=== PATIENT | male | born 1960 | race Caucasian/White ===

== ENCOUNTER 2016-11-30 18:13 | Emergency (ER) | payer BC, OTHER ==
[2016-11-30] MEDS ORDERED: NS 0.9% 1000 ML* 1,000 ML IV ONE (19:02)
[2016-11-30 20:14] LABS: Hematocrit 43 % (42-52); Hemoglobin 14.8 g/dl (14.0-18.0); Mean Corpuscular HGB Conc 35 g/dl (31-36); Mean Corpuscular Hemoglobin 32 pg (27-31); Mean Corpuscular Volume 92 fL (80-94); Mean Platelet Volume 8 um3 (7.4-10.4); Red Blood Count 4.61 10^6/ul (4.0-5.4); Red Cell Distribution Width 13 % (10.5-15); White Blood Count 6.9 10^3/ul (3.5-10.8)
[2016-11-30 20:31] LABS: Albumin 4.7 g/dL (3.2-5.2); BUN/Creatinine Ratio 18.7 (8-20); C Reactive Protein 2.77 mg/L (< 5.00); Calcium 9.3 mg/dL (8.6-10.3); EGFR African American 91.6 (>60); EGFR Non-African American 71.2 (>60); Globulin 2.4 g/dL (2-4); Potassium 3.7 mmol/L (3.5-5.0); Total Bilirubin 0.5 mg/dL (0.2-1.0); Total Protein 7.1 g/dL (6.4-8.9)
--- NOTE | 2016-11-30 20:31 | ED ---
Vane Thomason Thomas, scribed for Musa Thmopson MD on 11/30/16 at 1924 . GI/ HPI - HPI Summary HPI Summary: The pt is a 56 y/o M presenting to the ED c/o bloody stools that began this morning at 08:00. He denies straining when taking BMs. He reports that his stools have been loose in addition to the blood. Since the first episode of bloody stool, he has had constant abdominal cramping, nausea, and chills. He denies vomiting and fever. Currently, he describes the feeling of having to defecate but not being able to. He also now complains of a sharp pain in his RLQ. In all, he has had four episodes of bloody stools, although he denies manny blood. He denies eating any unusual foods recently and he ate pork chops last night. The pt rates the pain 6/10. The pain is aggravated and alleviated by nothing. 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 PMHx: GERD, irritable bowel, prostate CA. PSHx: hernia repair (2013). SHx: no smoking, occasional alcohol use, no illicit drug use. He is accompanied by his . - History of Current Complaint Chief Complaint: EDGIBleed Stated Complaint: BLOOD IN STOOL Hx Obtained From: Patient, Family/Financial Project Manager - in room Onset/Duration: Started Hours Ago - today at 08:00, Still Present Timing: Constant Pain Intensity: 6 Location of Pain: Diffuse - cramping in quality, RLQ - sharp pain Pain Characteristics: Cramping - diffuse, constant cramping, Other: - Sharp pain in RLQ Associated Signs and Symptoms: Positive: Vomiting, Blood w/Stool, Chills, Other : - POS: feeling of having to defecate. Negative: Fever Aggravating Factor(s): Nothing Alleviating Factor(s): Nothing - Allergy/Home Medications Allergies/Adverse Reactions: Allergies Allergy/AdvReac Type Severity Reaction Status Date / Time No Known Allergies Allergy Verified 09/08/16 10:29 PMH/Surg Hx/FS Hx/Imm Hx Previously Healthy: No Endocrine/Hematology History: Denies: Hx Diabetes, Hx Systemic Lupus Erythematosus, Hx Thyroid Disease, Hx Anemia Cardiovascular History: Denies: Hx Hypertension, Hx Pacemaker/ICD Respiratory History: Denies: Hx Asthma, Hx Chronic Obstructive Pulmonary Disease (COPD) GI History: Reports: Hx Gastroesophageal Reflux Disease - PRN meds, Hx Irritable Bowel Denies: Hx Jaundice, Hx Ulcer History: Reports: Other Problems/Disorders - elevated PSA and being monitored by Dr. Pereira Denies: Hx Renal Disease Musculoskeletal History: Reports: Hx Back Problems - trina and fusion Denies: Hx Rheumatoid Arthritis Sensory History: Denies: Hx Contacts or Glasses, Hx Hearing Aid Opthamlomology History: Denies: Hx Contacts or Glasses Neurological History: Reports: Other Neuro Impairments/Disorders - PAIN CLINIC Psychiatric History: Denies: Hx Panic Disorder - Cancer History Cancer Type, Location and Year: PROSTATE CA Hx Chemotherapy: No Hx Radiation Therapy: No - Surgical History Surgery Procedure, Year, and Place: Back surgery X 4 with fusion/rods, 1999, 2003, 2004, 2009. RIGHT SHOULDER ROTATOR CUFF REPAIR 2013. BELLY BUTTON HERNIA REPAIR 2013. spinal stimulator - removed Hx Anesthesia Reactions: No Infectious Disease History: Denies: Hx Clostridium Difficile, Hx Hepatitis, Hx Human Immunodeficiency Virus (HIV), Hx of Known/Suspected MRSA, Hx Shingles, Hx Tuberculosis, Hx Known/ Suspected VRE, Hx Known/Suspected VRSA, History Other Infectious Disease, Traveled Outside the [place] in Last 30 Days - Family History Known Family History: Positive: Other - POS: esophageal CA - Social History Alcohol Use: Occasionally Alcohol Amount: couple times a week Substance Use Type: Reports: None Smoking Status (MU): Never Smoked Tobacco Review of Systems Positive: Chills. Negative: Fever Positive: Abdominal Pain - constnat cramping and sharp RLQ pain, Nausea, Other - POS: bloody stools, onset this AM at 08:00. Negative: Vomiting All Other Systems Reviewed And Are Negative: Yes Physical Exam Triage Information Reviewed: Yes Vital Signs On Initial Exam: Initial Vitals Temp Pulse Resp BP Pulse Ox 98.7 F 65 18 134/94 98 11/30/16 18:22 11/30/16 18:22 11/30/16 18:22 11/30/16 18:22 11/30/16 18:22 Vital Signs Reviewed: Yes Appearance: Positive: Well-Appearing, No Pain Distress Skin: Positive: Warm Head/Face: Positive: Normal Head/Face Inspection Eyes: Positive: BRINA ENT: Positive: Hearing grossly normal Neck: Positive: Supple Respiratory/Lung Sounds: Positive: Clear to Auscultation, Breath Sounds Present Cardiovascular: Positive: RRR Abdomen Description: Positive: No Organomegaly, Soft, Other: - mild diffuse abd tyenderness. Negative: Distended, Guarding Bowel Sounds: Positive: Present Musculoskeletal: Positive: Strength/ROM Intact Neurological: Positive: Sensory/Motor Intact, Alert, Oriented to Person Place, Time, Normal Gait Psychiatric: Positive: Affect/Mood Appropriate Diagnostics - Vital Signs Vital Signs Temp Pulse Resp BP Pulse Ox 11/30/16 18:22 98.7 F 65 18 134/94 98 - Laboratory Result Diagrams: 11/30/16 20:04 11/30/16 20:04 Lab Statement: Any lab studies that have been ordered have been reviewed, and results considered in the medical decision making process. Re-Evaluation - Re-Evaluation First Eval Change: Improved - results d/w pt GIGU Course/Dx - Course Assessment/Plan: The pt is a 56 y/o M presenting to the ED c/o bloody stools that began this morning at 08:00. He denies straining when taking BMs. He reports that his stools have been loose in addition to the blood. Since the first episode of bloody stool, he has had constant abdominal cramping, nausea, and chills. He denies vomiting and fever. Currently, he describes the feeling of having to defecate but not being able to. He also now complains of a sharp pain in his RLQ. In all, he has had four episodes of bloody stools, although he denies manny blood. He denies eating any unusual foods recently and he ate pork chops last night. The pt rates the pain 6/10. The pain is aggravated and alleviated by nothing. 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 PMHx: GERD, irritable bowel, prostate CA. PSHx: hernia repair (2013). SHx: no smoking , occasional alcohol use, no illicit drug use. He is accompanied by his . In the ED course the patient was given IV fluids. Blood work shows Glucose 107. Stool occult blood is negative. CT Abd/Pel reveals no bowel obstruction, colitis , free fluid, or free air. Normal appendix. Diverticulosis colon without acute diverticulitis. Unremarkable pancreas, kidneys, and gallbladder. Surgical changes lumbosacral spine. ED physician has reviewed this radiology report and agrees. Patient is diagnosed with diverticulosis. Patient will be discharged home with follow up by PCP. Patient is agreeable to this plan. - Diagnoses Provider Diagnoses: Diverticulosis Discharge - Discharge Plan Condition: Stable Disposition: HOME Patient Education Materials: Diverticulosis (ED) Referrals: Zane Johansen MD [Primary Care Provider] - 3 Days The documentation as recorded by the Vane ferro Thomas accurately reflects the service I personally performed and the decisions made by , Musa Thompson MD.
[2016-11-30] MEDS ORDERED: Iohexol 300* (CONTRAST) 10 ML SDV IV ONE (21:00)
[2016-11-30 22:41] VITALS: BP 108/67
--- NOTE | 2016-12-01 07:48 | RAD ---
CLINICAL HISTORY: Abdominal pain and blood per rectum. Relevant prior surgeries include back surgery x4 with hardware placement. COMPARISON: Similar CT examination dated May 09, 2012 TECHNIQUE: Contrast enhanced CT examination of the abdomen and pelvis from the lung bases through the initial tuberosities. The patient received 124 mL Omnipaque 300 intravenously prior to imaging.The patient received oral contrast as well prior to imaging. FINDINGS: VISUALIZED LUNG BASES: There are mild hypoventilatory changes at the bilateral lung bases. Otherwise the visualized lung bases are grossly clear. There is no pleural effusion. ABDOMEN AND PELVIS: At the anterior left lobe of the liver (image 14 of 101) there is a triangular shaped focus of hyperattenuation similar in appearance to the 2013 CT examination. Otherwise the liver is homogenously hypodense relative to the spleen. The spleen, pancreas and adrenal glands are grossly normal in appearance. The gallbladder is normal. The kidneys are normal in appearance without focal mass, calcification or signs of hydronephrosis. There are contrast has progressed as far as the rectum. The small and large bowel are not distended. The patient's normal appendix is identified in the right lower quadrant measuring up to 6 mm in diameter (coronal image 52). There are air-fluid levels seen throughout the length of the colon. There are scattered rectosigmoid diverticula but there is no definite wall thickening or pericolonic infiltration of the fat.. There is no gross retroperitoneal or mesenteric lymphadenopathy. The pelvic viscera is normal in appearance. The abdominal aorta and iliac arteries are normal in course and diameter. Degenerative changes include multilevel loss of intervertebral disc height involving the lower thoracic and lumbar spine. Postsurgical changes include anterior and posterior transpedicular fixation of L5/S1.There are no sinister bone lesions. IMPRESSION: 1. Air-fluid levels seen in the colon could be associated with diarrheal illness. 2. Likely hepatic steatosis as well as left low meningioma as described above. 3. Additional chronic, degenerative and iatrogenic findings described in the body the report.
== END 2016-11-30 22:42 | disposition home or self-care (01) ==
LOC: ED 18:13
DX: K57.90 Diverticulosis of intestine, part unspecified, without perforation or abscess without bleeding (principal); R10.31 Right lower quadrant pain; R11.0 Nausea
CPT/HCPCS: 36415; 74177; 80053; 82270; 83605; 83690; 85025; 85610; 85730; 86140; 99282; Q9967

== ENCOUNTER 2017-01-26 11:57 | Day surgery (SDC) | payer OTHER ==
[~2017-01-26 11:57] MED LIST: Buffered Lidocaine 0.9% SYRIN* 5 ML/SYR SYRINGE INTRADERM ONE; Famotidine IV* 10 MG/ML 2 ML (20 mg) IV ONE
[2017-01-26] MEDS ORDERED: ceFAZolin 2 GM PREMIX (*) 2 GM/50 ML BAG IVPB ONE (12:31)
[2017-01-26] MEDS ORDERED: Famotidine IV* 10 MG/ML 2 ML (20 mg) ONE (12:31)
[2017-01-26] MEDS ORDERED: Buffered Lidocaine 0.9% SYRIN* 5 ML/SYR SYRINGE ONE (12:31)
[2017-01-26] MEDS ORDERED: fentaNYL* 50 MCG/ML 2 ML VIAL (100 MCG VIAL) ONE (13:01)
[2017-01-26] MEDS ORDERED: Midazolam* 1 MG/ML 5 ML VIAL (5 MG) ONE (13:02)
[2017-01-26] MEDS ORDERED: oxyCODONE TAB* 5 MG TAB PO PRN (13:50)
[2017-01-26] MEDS ORDERED: HYDROmorphone INJ* 1 MG/ML CARPUJECT SYRINGE IV PRN (13:50)
[2017-01-26] MEDS ORDERED: DiMENhydriNATE IV* 50 MG/ML VIAL IV PUSH PRN (13:50)
[2017-01-26] MEDS ORDERED: Acetaminophen TAB* 325 MG PO PRN (13:50)
[2017-01-26] MEDS ORDERED: Bupivacaine 0.25% SDV* 30 ML ONE (13:51)
[2017-01-26] MEDS ORDERED: Lidocaine 1% INJ* 10 MG/ML 30 ML SDV ONE (13:51)
[2017-01-26] MEDS ORDERED: Lidocaine 2% PF * 5 ML VIAL ONE (14:34)
[2017-01-26] MEDS ORDERED: Ondansetron INJ* 2 MG/ML VIAL ONE (14:34)
[2017-01-26] MEDS ORDERED: Propofol* 10 MG/ML 20 ML BTL IV PUSH ONE (14:34)
[2017-01-26] MEDS ORDERED: Acetaminophen TAB* 325 MG ONE (15:18)
[2017-01-26 15:48] VITALS: BP 120/81
--- NOTE | 2017-01-26 16:48 | RAD ---
INDICATION: Dorsal column stimulator placement COMPARISON: None FINDINGS: 129.4 seconds of fluoroscopy were provided for the anesthesiology department. Fluoroscopic spot imaging of the thoracic spine were obtained for operative control and show placement of a dorsal column stimulator with caudal most portion at T7/T8. CPT II Codes: 6045F (fluoro time doc)
--- NOTE | 2017-01-27 04:43 | OP ---
OPERATIVE NOTE: DATE OF OPERATION: 01/26/17 - [facility] DATE OF : 58 SURGEON: Jyotsna Gimenez MD SPINNER FRAME: Not applicable. ANESTHESIOLOGIST: Dr. Hilary Barlow. ANESTHESIA: Local MAC. PRE-OP DIAGNOSIS: Failed laminectomy syndrome. POST-OP DIAGNOSIS: Failed laminectomy syndrome. OPERATIVE PROCEDURE: Spinal cord stimulation, percutaneous trial and . INDICATIONS: I had the pleasure of seeing Mr. John Smyth at the operating room today. Mr. mSyth presents today for spinal cord stimulation, percutaneous trial and . ESTIMATED BLOOD LOSS: Minimal. HARDWARE: Nevro dual-lead percutaneous stimulator leads. ALLERGIES: Adhesive tape. DESCRIPTION OF PROCEDURE: The patient's back was dressed with paper tape and 4x4's only. The anchors were stitched in with 2-0 silk sutures and then tied and secured. The left lead was advanced to reach the top of T8 and the right lead the top of T9. The patient tolerated the procedure well and was subsequently discharged with no further complications. He was given Percocet 5/ 325, MDD 5, dispenses 30, to use at home for post-procedural pain. SPINAL CORD STIMULATOR TRIAL: PROCEDURE PERFORMED: Dual lead spinal cord stimulator trial. PROCEDURE PERFORMED BY: Jyotsna Gimenez MD FLUORO TIME: seconds. SEDATION: mg Versed. PHYSICAL EXAMINATION: The patient denies any new neurological or constitutional red flags. The patient denies any recent infection or current use of anticoagulants. Medications, as outlined on electronic medical record as well as allergies were reviewed with the patient. Skin of back with rash, lesions, or ulcers. PROCEDURE SUMMARY: The patient was seen and examined. Medical records were reviewed. The patient was informed of the risks, benefits, and alternatives to the procedure. Risks discussed included but were not limited to bleeding, infection, nerve damage or spinal headaches. The patient indicates understanding , all questions were answered, and consent obtained. The patient was then brought to the procedure room and placed in the prone position with arms to the side, making sure no pressure points were left unattended. Pressure points were checked and padded. Proceduralist was in continuous attendance. The area was then prepped and draped in the usual sterile manner, strict sterile technique was used. Final verification ("time out ") was performed to ensure the correct patient identity, site and agreement on the procedure to be done. The T12-L1 space was identified and confirmed with fluoroscopy. A left paramedian approach was used. mL of plain lidocaine 1% were used for local anesthesia of the skin. A 14-Gauge 3.5 inch Epidural Tuohy needle was inserted through the skin at the level one vertebral body below the aforementioned targeted interspace. The needle was advanced under fluoroscopy in a low transverse approach. The epidural space was identified and confirmed by fluoroscopy and easy thread of the SCS lead was performed. There was minimal change of resistance felt with the BRITTANI syringe when trying to identify the epidural space, so the lead was used to confirm entry into the epidural space. The SCS single lead was easily threaded all the way up to superior endplate of the vertebral body and tested by our in store representative. The steering and maneuvering of the lead was relatively easy and uneventful without significant issue and care was taken to keep the lead just left of midline with the tip aiming slightly to the left. The initial placement of the lead provided stimulation coverage that was adequate for the patient's pain. We then directed our attention to the right sided lead using the same method as summarized above. At this point, the Tuohy needles were cautiously removed verifying under fluoroscopy there was no migration of the lead. The leads were secured with Steri-Strips and Tegaderm in a sterile fashion. The device was taped and secured to the patient's . The patient tolerated the procedure well and was taken to our post-procedure care unit for further recovery and assessment of stimulation coverage modifications were made by the in store representative. The patient will return for follow up and lead pull in one week. Orders for thoracic spine 2- view x-rays have been ordered for today. All fluoroscopic images were saved. [id number]/[facility] #: [id number] VIC
== END 2017-01-26 16:05 | disposition home or self-care (01) ==
LOC: OR 11:57
PROVIDERS: ATTEND Anesthesiology Pain Medicine
DX: M96.1 Postlaminectomy syndrome, not elsewhere classified (principal); M54.16 Radiculopathy, lumbar region; K21.9 Gastro-esophageal reflux disease without esophagitis; K58.9 Irritable bowel syndrome, unspecified
CPT/HCPCS: 77003; A9270-GY; C1897; J0690; J2001; J2250; J2405; J2704; J3010

== ENCOUNTER 2017-02-03 13:32 | Emergency (ER) | payer BC, OTHER ==
[2017-02-03 13:41] VITALS: BP 115/74
--- NOTE | 2017-02-03 14:03 | UC ---
Pediatric ENT HPI - HPI Summary HPI Summary: C/O ear fullness with vertigo with any head movement. Sinus headaches as well. - History Of Current Complaint Chief Complaint: UCDizziness Stated Complaint: VERTIGO Time Seen by Provider: 02/03/17 13:48 Hx Obtained From: Patient Onset/Duration: Gradual Onset, Lasting Weeks - with the ear fullness, Worse Since - in the last week with progressively worsening vertigo. Timing: Intermittent, Lasting:, Seconds - 30 Severity Initially: Mild Severity Currently: Moderate Character: Dull - pressure sinus headache pain Aggravating Factor(s): Movement Alleviating Factor(s): Nothing Associated Signs And Symptoms: Ear, Decreased Hearing - Risk Factor(s) Epiglottis Risk Factors: Negative - Allergies/Home Medications Allergies/Adverse Reactions: Allergies Allergy/AdvReac Type Severity Reaction Status Date / Time steri strips Allergy Blisters Uncoded 02/03/17 13:41 Past Medical History Respiratory History: No: Asthma GI/ History: Yes: GERD - PRN meds Chronic Illness History: No: Diabetes - Family History Family History of Asthma: No Family History Of Seizure: No - Social History Lives With: Review Of Systems ENT: Ear Pain Neurological: Other - vertigo All Other Systems Reviewed And Are Negative: Yes Physical Exam Triage Information Reviewed: Yes Vital Signs: Initial Vital Signs Temp 96.7 F 02/03/17 13:36 Pulse 65 02/03/17 13:36 Resp 14 02/03/17 13:36 BP 115/74 02/03/17 13:36 Pulse Ox 97 02/03/17 13:36 Vital Signs Reviewed: Yes Appearance: Well-Appearing, No Pain Distress, Well-Nourished ENT: Positive: Nasal congestion - with allergic changes, TMs normal - normal on the right left with post surgical changes Neck: Positive: Supple Respiratory: Positive: Lungs clear Cardiovascular: Positive: Normal Musculoskeletal: Positive: Normal Neurological: Positive: Normal Psychological: Positive: Normal Pediatric EENT Course/Dx - Differential Dx/Diagnosis Differential Diagnosis/HQI/PQRI: Allergic Reaction, Otitis Media, URI Provider Diagnoses: Vertigo. Allergic rhinitis Discharge - Discharge Plan Condition: Stable Disposition: HOME Prescriptions: Meclizine HCl [Dramamine Less Drowsy-] 25 mg PO Q6H PRN #30 tab PRN Reason: Vertigo predniSONE TAB* [Deltasone TAB*] 20 mg PO DAILY #18 tab Patient Education Materials: Vertigo (ED), Meclizine (By mouth), Allergic Rhinitis (ED), Prednisone (By mouth) Additional Instructions: NEILMED SINUS RINSE: CHECK OUT AT [employer] Saline nasal wash helps with mucous, allergies and congestion. It can be used up to twice a day or only as needed. Use lukewarm tap water. It does not have to be sterilized or distilled water. Do 1/3 on each side and snort out of both nostrils. Repeat the process with 1/6 of the bottle on each side with snorting in between to finish the solution in the bottle
== END 2017-02-03 14:19 | disposition home or self-care (01) ==
LOC: UCCORT 13:32
DX: R42 Dizziness and giddiness (principal); J30.9 Allergic rhinitis, unspecified; K21.9 Gastro-esophageal reflux disease without esophagitis; Z91.048 Other nonmedicinal substance allergy status
CPT/HCPCS: 99212; G0463

== ENCOUNTER 2017-11-29 17:37 | Emergency (ER) | payer BC, OTHER ==
[2017-11-29] MEDS ORDERED: Ketorolac INJ* 60 MG/2 ML VIAL IM ONE (18:01)
[2017-11-29 18:02] VITALS: BP 145/93
--- OUTSIDE RECORDS SUMMARY | 2017-11-29 18:06 | XMS REPORT ---
:1960 External Reference #:[id number] Author Organization [facility] Address [address] [address] Phone [phone] Care Team Providers Name Role Phone Zane Johansen MD Care Team Information Surveillance Inspector Unavailable Payers Type Date Identification Numbers Payment Provider Subscriber Commercial Policy Number: [id number] [facility] Ppo John Smyth PayID: [id number] [address] [address] [place] [address] Workers Compensation Onset: 1996 Policy Number: Ophelia Smyth [id number] Group Number: [id number] [address] PayID: [place] [address] Problems Date Description Provider Status Onset: 07/11/2015 Pure hypercholesterolemia Zane Johansen MD Active Onset: 07/14/2015 Gastroesophageal reflux disease Zane Johansen MD Active Onset: 07/14/2015 Ace's esophagus Zane Johansen MD Active Onset: 07/14/2015 Lumbar spondylosis Zane Johansen MD Active Onset: 08/09/2015 Irritable bowel syndrome with Zane Johansen MD Active diarrhea Onset: 04/30/2017 Obstructive sleep apnea of adult Zane Johansen MD Active Social History Type Date Description Comments Marital Status Lives With Female Partner Namita Jalyn 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 - [employer] Use Occasionally consumes alcohol Smoking Patient has never smoked Daily Caffeine Consumes on average 3 cups of coffee per day Allergies, Adverse Reactions, Alerts Date Description Reaction Status Severity Comments 06/29/2015 NKDA active Medications Medication Date Status Form Strength Qnty SIG Indications Ordering Provider Azithromycin Hx Tablets 250mg 6tabs 2 pills R05 Haily 018 - by mouth Zane, day 1, 018 then 1 pill once daily for 4 more days (take w/ food) Benzonatate Hx Capsules 200mg 30caps 1 pill by R05 Haily 018 - mouth 3 , Zane, times a 018 day as needed for cough (swallow whole) Omeprazole Active Capsules DR 20mg 90caps 1 By K22.70 Haily 017 Mouth , Zane, Every Day K21.9 Escitalopram Active Tablets 10mg 90tabs Take 1 K58.0 Digiovanna, Oxalate Tablet Daily MD Zane Famciclovir 03/07/2017 Hx Tablets 500mg 21tabs 1 tablet by B02.9 Palomares, - mouth three DO Darwin 04/16/2017 times daily for 7 days Amitriptyline 03/07/2017 Hx Tablets 10mg 90tabs 1 by mouth B02.9 Palomares, HCL - at bedtime DO Darwin 04/16/2017 Fluticasone 06/30/2016 Hx Suspension 50mcg 16gm 1 spray per J06.9 Digiovanna, Propionate - /Act nostril MD Zane 11/29/2016 twice a day Return To 06/30/2016 Hx Cleared to Haily, Work Note - return to MD Zane 07/03/2016 work as of Sunday07/03/16 at full duty w/o restriction Dicyclomine 08/09/2015 Hx Capsules 10mg 60caps take one K58.0 Digiovanna, HCL - capsule by MD Zane 06/30/2016 mouth as needed up to 3 tines a day for cramps or loose stools Escitalopram 08/09/2015 Hx Tablets 10mg 90tabs Take 1 K58.0 Digiovanna, Oxalate - Tablet Daily MD Zane 11/29/2016 Nexium 06/29/[address] 40mg 180caps 2 by mouth K21.9 Digiovanna, - every day MD Zane 11/29/2016 K22.70 Prilosec OTC - Hx Tablets DR 20mg 1 by mouth every K21.9 Unknown 12/13/2016 day Immunizations CPT Code Status Date Vaccine Reaction Lot # [id number] Given 01/15/2017 Afluria Imunization [facility] Q2035 Given 01/25/2016 Afluria Imunization 60121 Given 06/29/2015 Tetanus And Diptheria Toxoids For Adult [id number] Use-preservative free 34966 Given 01/18/2004 Pneumococcal 23 Immunization Adult Or Immunosuppressed Patient Vital Signs Date Vital Result Comment 11/26/2017 Body Temperature 98.0 F Weight 207.00 lb Heart Rate 74 /min BP Systolic 120 mmHg BP Diastolic 80 mmHg Respiratory Rate 18 /min Height 67 inches 5'7" O2 % BldC Oximetry 94 % Ra O2 Saturation Level with Exercise 95 % walking BMI (Body Mass Index) 32.4 kg/m2 07/24/2017 Weight 211.00 lb Heart Rate 74 /min BP Systolic 130 mmHg BP Diastolic 76 mmHg Respiratory Rate 18 /min Height 67 inches 5'7" BMI (Body Mass Index) 33.0 kg/m2 04/16/2017 Weight 204.00 lb Heart Rate 72 /min BP Systolic 122 mmHg BP Diastolic 68 mmHg Respiratory Rate 18 /min Height 67 inches 5'7" BMI (Body Mass Index) 31.9 kg/m2 03/07/2017 Body Temperature 97.9 F Weight 204.00 lb Heart Rate 72 /min BP Systolic 132 mmHg BP Diastolic 70 mmHg Respiratory Rate 18 /min Height 67 inches 5'7" BMI (Body Mass Index) 31.9 kg/m2 01/22/2017 Weight 204.00 lb Heart Rate 64 /min BP Systolic 124 mmHg BP Diastolic 76 mmHg Respiratory Rate 18 /min Height 67 inches 5'7" BMI (Body Mass Index) 31.9 kg/m2 11/30/2016 Body Temperature 97.9 F Weight 204.00 lb Heart Rate 78 /min BP Systolic 132 mmHg BP Diastolic 80 mmHg Respiratory Rate 17 /min Height 67 inches 5'7" BMI (Body Mass Index) 31.9 kg/m2 09/06/2016 Weight 202.00 lb Heart Rate 74 /min BP Systolic 120 mmHg BP Diastolic 80 mmHg Respiratory Rate 18 /min Height 67 inches 5'7" BMI (Body Mass Index) 31.6 kg/m2 06/30/2016 Weight 202.00 lb Heart Rate 72 /min BP Systolic 120 mmHg BP Diastolic 80 mmHg Respiratory Rate 18 /min Height 67 inches 5'7" BMI (Body Mass Index) 31.6 kg/m2 08/09/2015 Body Temperature 97.8 F Weight 206.00 lb Heart Rate 74 /min BP Systolic 122 mmHg BP Diastolic 82 mmHg Respiratory Rate 18 /min Height 66.75 inches 5'6.75" BMI (Body Mass Index) 32.5 kg/m2 06/29/2015 Weight 202.00 lb Heart Rate 74 /min Respiratory Rate 18 /min Height 66.75 inches 5'6.75" BMI (Body Mass Index) 31.9 kg/m2 Results Test Date Test Result H/L Range Note Lipid Treatment 07/17/2017 Cholesterol 238 mg/dL High 50-199 1 Triglycerides 186 mg/dL 30-200 1 HDL 44 mg/dL 29-71 1, 2 Chol/ HDL Ratio 5.4 ratio 4.0-6.7 1 VLDL 37 mg/dL High 2-29 1 LDL (Calc) 157 mg/dL High 20-99 1, 3 Alt 29 U/L 3-42 1 Ast 21 U/L 8-42 1 Basic (BMP) 04/16/2017 Sodium 140 mmol/L 135-146 4, 5 Potassium 4.2 mmol/L 3.5-5.2 4 Chloride# 101 mmol/L 97-110 4, 6 Carbon Dioxide 30 mmol/L 24-34 4 Glucose 107 mg/dL High 70-105 4 Creatinine 1.2 mg/dL 0.5-1.4 4 Calcium 9.4 mg/dL 8.5-10.2 4 Non Amber Egfr >60 >60 4, 7 Amber Egfr >60 >60 4, 8 Anion Gap 9 mmol/L 7-16 4, 9 BUN 27 mg/dL High 6-26 4 CBC With Auto Diff 04/16/2017 WBC 9.2 K/uL 4.1-11.0 4 RBC 4.64 M/uL 4.60-6.10 4 Hemoglobin 14.6 gm/dL 13.5-18.0 4 Hematocrit 43.1 % 41.0-53.0 4 MCV 92.8 fL 80.0-97.0 4 MCH 31.4 pg 27.0-32.0 4 MCHC 33.8 g/dL 32.0-36.0 4 RDW 12.6 % 11.5-14.5 4 PLT Count 288 K/ul 140-400 4 MPV 9.4 FL 7.1-10.7 4 Neutrophil 77.8 % High 35.0-75.0 4 Lymphocyte 14.7 % Low 16.0-52.0 4 Monocyte 5.5 % 2.0-10.0 4 Eosinophil 1.0 % 0.0-5.0 4 Basophil 1.0 % 0.0-4.0 4 Abs Neutrophils 7.2 K/uL 2.1-8.0 4 Abs Lymphocytes 1.4 K/uL 0.8-5.5 4 Abs Monocytes 0.5 K/uL 0.1-1.0 4 Abs Eosinophils 0.1 K/uL 0.0-0.5 4 Abs Basophils 0.1 K/uL 0.0-0.3 4 Lipid Treatment 01/01/2017 Cholesterol 240 mg/dL High 50-199 10 Triglycerides 215 mg/dL High 30-200 10 HDL 49 mg/dL 29-71 10, 11 Chol/ HDL Ratio 4.9 ratio 4.0-6.7 10 VLDL 43 mg/dL High 2-29 10 LDL (Calc) 149 mg/dL High 20-99 10, 12 Alt 29 U/L 3-42 10 Ast 21 U/L 8-42 10 Basic (BMP) 01/01/2017 Sodium 140 mmol/L 135-146 10, 13 Potassium 4.3 mmol/L 3.5-5.2 10 Chloride# 105 mmol/L 97-110 10, 14 Carbon Dioxide 28 mmol/L 24-34 10 Glucose 109 mg/dL High 70-105 10 BUN 25 mg/dL 6-26 10 Creatinine 1.2 mg/dL 0.5-1.4 10 Calcium 9.1 mg/dL 8.5-10.2 10 Non Amber Egfr 61 >60 10, 15 Amber Egfr >60 >60 10, 16 Anion Gap 7 mmol/L 7-16 10, 17 Laboratory test finding 01/01/2017 Magnesium 2.1 mg/dL 1.5-2.7 10 Vitamin B12 319 pg/mL 180-914 10 CBC With Auto Diff 09/08/2016 WBC 5.4 K/uL 4.1-11.0 RBC 4.59 M/uL Low 4.60-6.10 Hemoglobin 14.5 gm/dL 13.5-18.0 Hematocrit 42.8 % 41.0-53.0 MCV 93.3 fL 80.0-97.0 MCH 31.5 pg 27.0-32.0 MCHC 33.8 g/dL 32.0-36.0 RDW 13.3 % 11.5-14.5 PLT Count 215 K/ul 140-400 Neutrophil 54.0 % 35.0-75.0 Lymphocyte 30.8 % 16.0-52.0 Monocyte 8.1 % 2.0-10.0 Eosinophil 5.0 % 0.0-5.0 Basophil 2.1 % 0.0-4.0 Abs Neutrophils 2.9 K/uL 2.1-8.0 Abs Lymphocytes 1.7 K/uL 0.8-5.5 Abs Monocytes 0.4 K/uL 0.1-1.0 Abs Eosinophils 0.3 K/uL 0.0-0.5 Abs Basophils 0.1 K/uL 0.0-0.3 Laboratory test finding 09/08/2016 Vitamin B12 362 pg/mL 180-914 Total Testosterone Adult Male 315 ng/dL 285-950 TSH Receptor AB -RL 09/08/2016 TSH Receptor AB <0.90 IU/L 18 Basic (BMP) 07/02/2015 Sodium 138 mmol/L 134-142 Potassium 4.2 mmol/L 3.5-5.2 Chloride 104 mmol/L 97-109 Carbon Dioxide 29 mmol/L 24-34 Glucose 96 mg/dL 70-105 BUN 20 mg/dL 6-26 Creatinine 1.1 mg/dL 0.5-1.4 Calcium 9.0 mg/dL 8.5-10.2 Anion Gap 9 mmol/L 6-14 Non Amber Egfr >60 >60 19 Amber Egfr >60 >60 20 Lipid Treatment 07/02/2015 Cholesterol 204 mg/dL High 50-199 Triglycerides 96 mg/dL 30-200 HDL 42 mg/dL 29-71 21 Chol/ HDL Ratio 4.9 ratio 4.0-6.7 VLDL 19 mg/dL 2-29 LDL (Calc) 143 mg/dL High 20-99 22 Alt 28 U/L 3-42 Ast 14 U/L 8-42 Laboratory test finding 07/02/2015 Magnesium 2.1 mg/dL 1.5-2.7 Vitamin B12 513 pg/mL 180-914 CBC With Auto Diff 07/02/2015 WBC 5.9 K/uL 4.1-11.0 RBC 4.61 M/uL 4.60-6.10 Hemoglobin 14.3 gm/dL 13.5-18.0 Hematocrit 42.9 % 41.0-53.0 MCV 93.0 fL 80.0-97.0 MCH 31.0 pg 27.0-32.0 MCHC 33.3 g/dL 32.0-36.0 RDW 12.5 % 11.5-14.5 PLT Count 242 K/ul 140-400 Neutrophil 56.3 % 35.0-75.0 Lymphocyte 32.3 % 16.0-52.0 Monocyte 7.4 % 2.0-10.0 Eosinophil 2.7 % 0.0-5.0 Basophil 1.3 % 0.0-4.0 Abs Neutrophils 3.3 K/uL 2.1-8.0 Abs Lymphocytes 1.9 K/uL 0.8-5.5 Abmon 0.4 K/uL 0.1-1.0 Abs Eosinophils 0.2 K/uL 0.0-0.5 Abs Basophils 0.1 K/uL 0.0-0.3 Laboratory test finding 07/02/2015 TSH 0.71 uIU/mL 0.35-4.94 Hepatitis C Virus Antibody NONREACTIVE Nonreactive 1 07/25 preOV 2 Per NCEP ATP III Guidelines: Results lower than 40 mg/dL are suggestive of increased risk for coronary artery disease. Results > or=to 60 mg/dL are considered a negative risk factor. 3 Per NCEP ATP III Guidelines: Normal Population <130 Patients with medical conditions: CHD/DM Optimal: <100 Borderline high: 130-159 High: 160-189 Very high: >189 4 cc: Dr Sullivan (FAXED 04/17 - AD) 5 Updated reference range on new analyzer 6 Updated reference range on new analyzer 7 Concerning GFR Guidelines: Normal function or mild renal disease, if clinically at risk: >/=60 mL/min Moderately decreased: 30-59 Severely decreased: 15-29 Renal failure: <15 Glomerular Filtration Rate (GFR) is estimated based on the MDRD equation, which assumes a steady state for creatinine as recommended by the National Kidney Disease Education Program in conjunction with the National Institutes of Health and the National Kidney Foundation. Clinical conditions in which it may be necessary to measure GFR by using clearance methods include extremes of age and body size, severe malnutrition or obesity, diseases of skeletal muscle, paraplegia or quadriplegia, vegetarian diet, rapidly changing kidney function, and calculation of the dose of potentially toxic drugs that are excreted by the kidneys. 8 Concerning GFR Guidelines for Americans: Normal function or mild renal disease, if clinically at risk: >/=60 mL/min Moderately decreased: 30-59 Severely decreased: 15-29 Renal failure: <15 9 Updated reference range on new analyzer 10 12/24 preOV 11 Per NCEP ATP III Guidelines: Results lower than 40 mg/dL are suggestive of increased risk for coronary artery disease. Results > or=to 60 mg/dL are considered a negative risk factor. 12 Per NCEP ATP III Guidelines: Normal Population <130 Patients with medical conditions: CHD/DM Optimal: <100 Borderline high: 130-159 High: 160-189 Very high: >189 13 Updated reference range on new analyzer 14 Updated reference range on new analyzer 15 Concerning GFR Guidelines: Normal function or mild renal disease, if clinically at risk: >/=60 mL/min Moderately decreased: 30-59 Severely decreased: 15-29 Renal failure: <15 Glomerular Filtration Rate (GFR) is estimated based on the MDRD equation, which assumes a steady state for creatinine as recommended by the National Kidney Disease Education Program in conjunction with the National Institutes of Health and the National Kidney Foundation. Clinical conditions in which it may be necessary to measure GFR by using clearance methods include extremes of age and body size, severe malnutrition or obesity, diseases of skeletal muscle, paraplegia or quadriplegia, vegetarian diet, rapidly changing kidney function, and calculation of the dose of potentially toxic drugs that are excreted by the kidneys. 16 Concerning GFR Guidelines for Americans: Normal function or mild renal disease, if clinically at risk: >/=60 mL/min Moderately decreased: 30-59 Severely decreased: 15-29 Renal failure: <15 17 Updated reference range on new analyzer 18 Reference range: <=1.75 INTERPRETIVE INFORMATION: Thyroid Stimulating Hormone Receptor Ab Autoimmune thyroid disease may be confirmed when TRAb testing is positive. Performed by [facility], [address] [place] [id number] [email or web address], Migel Carlson MD, Lab. Director Unless otherwise specified, testing performed by [facility] [place] [facility] [address] [address] 19 Concerning GFR Guidelines: Normal function or mild renal disease, if clinically at risk: >/=60 mL/min Moderately decreased: 30-59 Severely decreased: 15-29 Renal failure: <15 Glomerular Filtration Rate (GFR) is estimated based on the MDRD equation, which assumes a steady state for creatinine as recommended by the National Kidney Disease Education Program in conjunction with the National Institutes of Health and the National Kidney Foundation. Clinical conditions in which it may be necessary to measure GFR by using clearance methods include extremes of age and body size, severe malnutrition or obesity, diseases of skeletal muscle, paraplegia or quadriplegia, vegetarian diet, rapidly changing kidney function, and calculation of the dose of potentially toxic drugs that are excreted by the kidneys. 20 Concerning GFR Guidelines for Americans: Normal function or mild renal disease, if clinically at risk: >/=60 mL/min Moderately decreased: 30-59 Severely decreased: 15-29 Renal failure: <15 21 Per NCEP ATP III Guidelines: Results lower than 40 mg/dL are suggestive of increased risk for coronary artery disease. Results > or=to 60 mg/dL are considered a negative risk factor. 22 Per NCEP ATP III Guidelines: Normal Population <130 Patients with medical conditions: CHD/DM Optimal: <100 Borderline high: 130-159 High: 160-189 Very high: >189 Procedures Date CPT Code Description Status 11/26/2017 09932 Measure Blood Oxygen Level Single Determination Completed 04/16/2017 79285 Electrocardiogram Complete Completed 10/14/2013 Colonoscopy Completed Encounters Type Date Location Provider CPT E/M Dx Office Visit 07/24/2017 2:30p [facility] [place] [address] E78.00 K21.9 K58.0 K22.70 M47.816 Z79.899 Z68.33 Office Visit 04/16/2017 2:30p [facility] [place] [address] Z01.810 M54.5 Office Visit 03/07/2017 2:00p [facility] [place] [address] B02.9 Office Visit 01/22/2017 2:30p [facility] [place] [address] E78.00 K21.9 K58.0 K22.70 Office Visit 11/30/2016 4:15p [facility] [place] [address] R19.7 Office Visit 09/06/2016 4:30p [facility] [place] [address] G47.00 R53.83 Office Visit 06/30/2016 1:30p [facility] [place] [address] R07.9 K21.9 E78.00 K58.0 M47.814 J06.9 R97.20 Z79.899 Office Visit 08/09/2015 2:00p [facility] [place] [address] K58.0 K21.9 Office Visit 06/29/2015 1:30p [facility] [place] [address] Z00.00 M25.511 K21.9 K22.70 Z79.899 E78.0 R53.83 Z11.59 Z23 Plan of Care Future Appointment(s):01/16/2018 8:20 am - Schedule, Laboratory at [facility]2017 2:30 pm - Zane Johansen [facility] at [facility]11/26/2017 - Zane Johansen, MDR05 CoughNew Medication:Azithromycin 250 mgBenzonatate 200 mgFollow up: .Z68.32 Body mass index (BMI) 32.0-32.9, adult
--- NOTE | 2017-11-29 18:09 | UC ---
Respiratory Complaint HPI - HPI Summary HPI Summary: \Onset of visual blurring x 3.5 hours, no diplopia, after awakening with a headache and neck pain this morning. No photo- or phonophobia, no fever, no vertigo or sided weakness, no dysarthria. Has felt alert, without nausea or vomiting. Has been treated for the past 5 days with azithromycin for treatment of suspected walking pneumonia; has not had a chest xray. Continues to cough with severe disruption of sleep. Has a dorsal column stimulator in place for the past several months. Has been taking codeine cough suppressant, last dose last pm. Took advil this morning without relief of pain. Mowed for about an hour this afternoon; visual blurring began after that. No hx of hypertension; reports that his usual blood pressure is in the 108- 120 range. - History of Current Complaint Chief Complaint: UCGeneralIllness Stated Complaint: HEADACHE, BLURRED VISION Time Seen by Provider: 11/29/17 18:00 Hx Obtained From: Patient, Family/Supply Chain Manager - here with his Onset/Duration: Sudden Onset, Lasting Hours Timing: Constant Severity Initially: Moderate Severity Currently: Severe Pain Intensity: 9 Character: Cough: Nonproductive Aggravating Factors: Recumbent Position Alleviating Factors: Nothing Associated Signs And Symptoms: Positive: Dizziness. Negative: Dyspnea, Fever, Chills - Risk Factors Pulmonary Embolism Risk Factors: Negative Cardiac Risk Factors: Family History - Allergies/Home Medications Allergies/Adverse Reactions: Allergies Allergy/AdvReac Type Severity Reaction Status Date / Time steri strips Allergy Blisters Uncoded 11/29/17 17:47 Home Medications: Home Medications Azithromycin TAB* [Zithromax TAB (Z-TAMIKA) 250 mg #6 tabs] 1 tab DAILY 11/29/17 [ History Confirmed 11/29/17] Benzonatate CAP* [Tessalon 100 MG CAP*] 1 cap TID PRN 11/29/17 [History Confirmed 11/29/17] Codeine Phosphate/Guaifenesin [Codeine-Guaifen 10-100 mg/5 ml] 1 tab DAILY 11/29 [History Confirmed 11/29/17] PMH/Surg Hx/FS Hx/Imm Hx Previously Healthy: No - multiple back surgeries, overweight. GI/ History: Gastroesophageal Reflux - Surgical History Surgical History: Yes Surgery Procedure, Year, and Place: Back surgery X 4 with fusion/rods, 1999, 2003, 2004, 2009. RIGHT SHOULDER ROTATOR CUFF REPAIR 2013. BELLY BUTTON HERNIA REPAIR 2013. spinal stimulator 2017, then removed two days later ( AT [facility]). left ear x2 - RECON. OF EAR DRUM - NO IMPLANTS. valarie elbows, 1999. dorsal column stimulator, [employer], Apr 2017 - Family History Known Family History: Positive: Cardiac Disease - father had [place] in his 60's, Other - POS: esophageal CA - Social History Occupation: Employed Full-time Lives: With Family Alcohol Use: Occasionally Alcohol Amount: 3-4 per week Substance Use Type: None Smoking Status (MU): Never Smoked Tobacco Have You Smoked in the Last Year: No - Immunization History Most Recent Tetanus Shot: unknown Review of Systems Constitutional: Fatigue Skin: Negative Eyes: Blurred Vision ENT: Negative Respiratory: Cough Cardiovascular: Negative Gastrointestinal: Negative Genitourinary: Negative Motor: Negative Neurovascular: Negative Musculoskeletal: Arthralgia Neurological: Headache Psychological: Negative Is Patient Immunocompromised?: No All Other Systems Reviewed And Are Negative: Yes Physical Exam Triage Information Reviewed: Yes Appearance: Ill-Appearing - looks mildly unwell, Pain Distress - moderate, Obese Vital Signs: Initial Vital Signs Temp 97.9 F 11/29/17 17:43 Pulse 73 11/29/17 17:43 Resp 24 11/29/17 17:43 BP 145/93 11/29/17 17:43 Pulse Ox 97 11/29/17 17:43 Eyes: Positive: Conjunctiva Clear ENT: Positive: Pharynx normal, TM dull - on left, TM scarred with air fluid level Neck: Positive: Supple - has pain with extension, but neck is not rigid., Nontender, No Lymphadenopathy Respiratory: Positive: Lungs clear Cardiovascular: Positive: RRR, No Murmur Abdomen Description: Positive: Nontender, No Organomegaly, Soft Bowel Sounds: Positive: Present Musculoskeletal: Positive: Strength Intact Neurological: Positive: Alert Psychological Exam: Normal Skin Exam: Normal UC Diagnostic Evaluation - Laboratory O2 Sat by Pulse Oximetry: 97 Diagnostic Studies Comment: Chest xray per without evidence of pneumonia. Radiology read pending. CT brain negative per [facility]. - Radiology Xray Interpretation: No Acute Changes Radiology Interpretation Completed By: ED Physician - CT CT Interpretation: No Acute Changes Re-Evaluation - Re-Evaluation First Eval Re-Evaluation Time: 18:55 Change: Improved Comment: headache decreased from 9/10 to 4/10, has an appetite, visual blurring is resolved Respiratory Course/Dx - Course Course Of Treatment: Complete course of azithromycin. Labs for evaluation of continued symptoms of headache, cough and malaise. - Differential Dx/Diagnosis Differential Diagnosis/HQI/PQRI: Sinusitis, Other - viral illness, pneumonia, Lyme disease Provider Diagnoses: cough, likely viral illness. Headache NYD Discharge - Sign-Out/Discharge Documenting (check all that apply): Patient Departure All imaging exams completed and their final reports reviewed: No - Discharge Plan Condition: Stable Disposition: HOME Patient Education Materials: Viral Syndrome (ED) Referrals: Zane Johansen MD [Primary Care Provider] - Additional Instructions: As discussed, lab work has been ordered to help to establish a diagnosis for your persistent fever and cough. Lab results can be sent to your primary care physician. A number of results will be available tomorrow afternoon, but not all. We call abnormals, but you could call to check on the report. You were given ketorolac, an injectable anti-inflammatory, which gave relief of headache. If your headache intensifies or you continue to feel unwell, you will go to the emergency room. Follow up with your family physician to review lab work. Lyme serology will take up to 5 days to be reported. - Billing Disposition and Condition Condition: STABLE Disposition: Home
--- NOTE | 2017-11-29 18:43 | RAD ---
EXAM: CT Head Without Intravenous Contrast CLINICAL HISTORY: 57 years old, male; Signs and symptoms; Dizziness and visual disturbance; Patient HX: Blurred vision, ARZOLA, dizziness, SOB since mowing the lawn at 1430 hrs, HX of prostate ca; Additional info: Headache with visual blurring x 1 day TECHNIQUE: Axial computed tomography images of the head/brain without intravenous contrast. All CT scans at this facility use at least one of these dose optimization techniques: automated exposure control; mA and/or kV adjustment per patient size (includes targeted exams where dose is matched to clinical indication); or iterative reconstruction. COMPARISON: BRAIN [facility] MRI BRAIN W/WO 03/12/2017 2:16 PM FINDINGS: Brain: No intracranial hemorrhage or extra-axial fluid collection. No evidence of mass effect or midline shift. Berman-white matter differentiation is normal. Ventricles: Unremarkable. No ventriculomegaly. Bones/joints: Unremarkable. No acute fracture. Soft tissues: Unremarkable. Sinuses: Unremarkable as visualized. No acute sinusitis. Mastoid air cells: Non-pneumatization of left mastoid air cells. Right mastoid air cells are clear. IMPRESSION: No acute intracranial pathology.
--- NOTE | 2017-11-30 07:37 | RAD ---
INDICATION: Cough COMPARISON: None TECHNIQUE: PA and lateral dual-energy views were obtained. FINDINGS: Bones/Soft Tissues: There are no acute bony findings. Cardiomediastinal: The cardiomediastinal silhouette is normal. Lungs: There are no infiltrates. Pleura: There are no pleural effusions. Other: There is a dorsal column stimulator IMPRESSION: NO ACTIVE DISEASE. R0
--- NOTE | 2017-11-30 08:14 | UC ---
- Progress Note Progress Note: CXR CT reviewed - no change myra 11/30/2017 Re-Evaluation - Re-Evaluation First Eval Re-Evaluation Time: 18:55 Change: Improved Comment: headache decreased from 9/10 to 4/10, has an appetite, visual blurring is resolved Discharge - Sign-Out/Discharge Documenting (check all that apply): Post-Discharge Follow Up All imaging exams completed and their final reports reviewed: Yes - Discharge Plan Condition: Stable Disposition: HOME Patient Education Materials: Viral Syndrome (ED) Referrals: Zane Johansen MD [Primary Care Provider] - Additional Instructions: As discussed, lab work has been ordered to help to establish a diagnosis for your persistent fever and cough. Lab results can be sent to your primary care physician. A number of results will be available tomorrow afternoon, but not all. We call abnormals, but you could call to check on the report. You were given ketorolac, an injectable anti-inflammatory, which gave relief of headache. If your headache intensifies or you continue to feel unwell, you will go to the emergency room. Follow up with your family physician to review lab work. Lyme serology will take up to 5 days to be reported. - Billing Disposition and Condition Condition: STABLE Disposition: Home
[2017-11-30 10:36] LABS: ABS Basophils 0 10^3/ul (0-0.2); ABS Eosinophils 0.3 10^3/ul (0-0.6); ABS Lymphocytes 2.3 10^3/ul (1.0-4.8); ABS Monocytes 0.7 10^3/ul (0-0.8); ABS Neutrophils 4.2 10^3/ul (1.5-7.7); ABS Nucleated RBC 0.1 10^3/ul; Eosinophil % 3.9 % (0-6); Hematocrit 42 % (42-52); Hemoglobin 14.5 g/dl (14.0-18.0); Lymphocyte % 31.2 % (25-47); Mean Corpuscular HGB Conc 35 g/dl (31-36); Mean Corpuscular Hemoglobin 31 pg (27-31); Mean Corpuscular Volume 90 fL (80-94); Mean Platelet Volume 9.4 um3 (7.4-10.4); Platelet Count 250 10^3/ul (150-450); Red Cell Distribution Width 13 % (10.5-15); White Blood Count 7.5 10^3/ul (3.5-10.8)
[2017-11-30 10:58] LABS: EGFR Non-African American 57.2 (>60)
--- NOTE | 2017-12-01 10:25 | UC ---
- Progress Note Progress Note: Please call patient to assess clinical improvement of headache and to instruct him to follow up with his primary care physician to monitor a slight elevation of his kidney function tests (creat =1.29) and elevation of CRP (9.96) Re-Evaluation - Re-Evaluation First Eval Re-Evaluation Time: 18:55 Change: Improved Comment: headache decreased from 9/10 to 4/10, has an appetite, visual blurring is resolved Discharge - Sign-Out/Discharge Documenting (check all that apply): Post-Discharge Follow Up All imaging exams completed and their final reports reviewed: Yes - Discharge Plan Condition: Stable Disposition: HOME Patient Education Materials: Viral Syndrome (ED) Referrals: Zane Johansen MD [Primary Care Provider] - Additional Instructions: As discussed, lab work has been ordered to help to establish a diagnosis for your persistent fever and cough. Lab results can be sent to your primary care physician. A number of results will be available tomorrow afternoon, but not all. We call abnormals, but you could call to check on the report. You were given ketorolac, an injectable anti-inflammatory, which gave relief of headache. If your headache intensifies or you continue to feel unwell, you will go to the emergency room. Follow up with your family physician to review lab work. Lyme serology will take up to 5 days to be reported. - Billing Disposition and Condition Condition: STABLE Disposition: Home
== END 2017-11-29 19:16 | disposition home or self-care (01) ==
LOC: UCCORT 17:37
DX: R05 Cough (principal); R51 Headache
CPT/HCPCS: 36415; 70450; 71046; 80053; 85025; 86140; 86617; 86618; 96372; 99211; G0463; J1885

== ENCOUNTER 2017-12-27 15:05 | Observation (INO) | payer BC ==
--- OUTSIDE RECORDS SUMMARY | 2017-12-27 15:39 | XMS REPORT ---
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 Payers Type Date Identification Numbers Payment Provider Subscriber Commercial Policy Number: [id number] [facility] Ppo John Smyth PayID: [id number] [address] [address] [place] [address] Workers Compensation Onset: 1996 Policy Number: Ophelia Smyth [id number] Group Number: [id number] [address] PayID: [place] [address] Problems Date Description Provider Status Onset: 07/11/2015 [...] Lives With Female Partner Namita Jalyn 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 - [employer] ETOH Use Occasionally consumes alcohol Smoking Patient has never smoked Daily Caffeine Consumes on average 3 cups of coffee per day Allergies, Adverse Reactions, Alerts Date Description Reaction Status Severity Comments 06/29/2015 NKDA active Medications Medication Date Status Form Strength Qnty SIG Indications Ordering Provider Benzonatate Hx Capsules 200mg 30caps 1 pill by R05 Haily, 018 - mouth 3 MD Zaen times a 018 day as needed for cough (swallow whole) Omeprazole Active Capsules DR 20mg 90caps 1 By K22.70 Haily, 017 Mouth MD Zane Every Day K21.9 Escitalopram Active Tablets 10mg 90tabs Take 1 K58.0 Digiovanna, Oxalate Tablet Daily MD Zane Doxycycline Active Capsules 100mg 1 by mouth Unknown Monohydrate twice a day For 2 Weeks Cefdinir Active Capsules 300mg 1 by mouth Unknown twice a day For 7 Days Azithromycin 11/26/2017 Hx Tablets 250mg 6tabs 2 pills by R0Jillian Johansen, - mouth day 1, MD Zane 12/05/2017 then 1 pill once daily for 4 more days (take w/ food) Famciclovir 03/07/2017 Hx Tablets 500mg 21tabs 1 [...] day Return To 06/30/2016 Hx Cleared to Haily Work Note - return to MD Zane [...] [facility] Q[facility] Given 01/25/2016 Afluria Imunization 07787 Given 06/29/2015 Tetanus And Diptheria Toxoids For Adult [id number] Use-preservative free 40187 Given 01/18/2004 Pneumococcal 23 Immunization Adult Or Immunosuppressed Patient Vital Signs Date Vital Result Comment 12/05/2017 Body Temperature 98.0 F Weight 203.00 lb Heart Rate 76 /min BP Systolic 120 mmHg BP Diastolic 72 mmHg Respiratory Rate 18 /min Height 67 inches 5'7" BMI (Body Mass Index) 31.8 kg/m2 11/26/2017 Body Temperature 98.0 F Weight 207.00 [...] Test Date Test Result H/L Range Note Laboratory test finding 12/05/2017 Esr <pending> CRP (C-Reactive) <pending> CBC 12/04/2017 White Blood Count 8.1 K/uL 3.4-10.5 1 Red Blood Count 4.21 M/uL 4.20-5.80 1 Hemoglobin 13.2 gm/dL 12.8-17.0 1 Hematocrit 38.0 % 38.0-48.0 1 Mean Cell Volume 90.3 fl 80.0-96.0 1 Mean Corpuscular HGB 31.4 pg 27.0-33.0 1 Mean Corpuscular HGB Conc 34.7 g/dL 31.7-36.0 1 Platelet Count 231 K/uL 155-360 1 Red Cell Distri Width %CV 12.0 % 11.6-15.8 1 Mean Platelet Volume 10.5 fL 6.6-10.6 1 CBS W/Automated Diff 12/04/2017 Red Cell Distri Width SD 38.8 fl 36-51 1 Neut% 52.8 % 33.0-73.0 1 Lymph % 34.7 % 20.0-42.0 1 Faulk % 7.6 % 0.0-10.0 1 Eo% 3.4 % 0.0-6.6 1 Bas% 1.5 % High 0.0-1.1 1 Neut# 4.28 K/uL 1.8-7.0 1 Lymph # 2.82 K/uL 1.0-4.0 1 Faulk # 0.62 K/uL 0.0-0.8 1 Eos # 0.28 K/uL 0.0-0.5 1 Baso # 0.12 K/uL High 0.0-0.1 1 Comprehensive Metabolic Panel 12/04/2017 Glucose 103 mg/dL 74-106 1 BUN 18 mg/dL 7-18 1 Creatinine 1.3 mg/dL 0.6-1.3 1 Glom Filtration Rate, Estimate 60 mL/min >60 1 If >60 mL/min >60 1, 2 BUN/Creat 13.8 ratio 1 Sodium 143 mmol/L 136-145 1 Potassium 4.1 mmol/L 3.5-5.1 1 Chloride 106 mmol/L 98-107 1 Carbon Dioxide 27 mmol/L 21-32 1 Anion Gap 10 mEq/L 8-16 1 Calcium 8.0 mg/dL Low 8.5-10.1 1 Total Protein 6.3 g/dL Low 6.4-8.2 1 Albumin 3.2 g/dL Low 3.4-5.0 1 Globulin 3.1 g/dL 1.9-4.3 1 Alb/Glob 1.0 ratio 1 Bilirubin,Total 0.2 mg/dL 0.2-1.0 1 Sgot/Ast 20 U/L 15-37 1 SGPT/Alt 40 U/L 12-78 1 Alkaline Phosphatase 62 U/L 45-117 1 Laboratory test finding 12/03/2017 C-Reactive Protein,Quant 3.1 mg/L High <3.0 1 Basic Metabolic Panel 12/03/2017 Glucose 106 mg/dL 74-106 1 BUN 15 mg/dL 7-18 1 Creatinine 1.2 mg/dL 0.6-1.3 1 Glom Filtration Rate, Estimate >60 mL/min >60 1 If >60 mL/min >60 1, 3 BUN/Creat 12.5 ratio 1 Sodium 141 mmol/L 136-145 1 Potassium 3.9 mmol/L 3.5-5.1 1 Chloride 105 mmol/L 98-107 1 Carbon Dioxide 27 mmol/L 21-32 1 Anion Gap 9 mEq/L 8-16 1 Calcium 8.4 mg/dL Low 8.5-10.1 1 Laboratory test 12/03/2017 C. Difficile Toxin Negative for tox 1, 4 finding B By PCR <SEE NOTE> Laboratory test 12/03/2017 Vancomycin,Trough 15.5 ug/mL 15.0-20.0 1, 5 finding Aot Request 12/03/2017 Aot Request Test(s) added 1, 6 Tests to be added: crp 1 Laboratory test 12/01/2017 Antistreptolysin O Ab 50.8 IU/mL 0.0-200.0 1 , 7 finding Lyme Igg & Igm By 12/01/2017 Lyme AB Igg By Western . 1 Western Blot Blot P93 AB Absent . 1 P66 AB Absent . 1 P58 AB Absent . 1 P45 AB Absent . 1 P41 AB Absent . 1 P39 AB Absent . 1 P30 AB Absent . 1 P28 AB Absent . 1 P23 AB Absent . 1 P18 AB Absent . 1 Lyme Igg WB Interpretation Negative . 1, 8 Lyme AB Igm By Western Blot . 1 P41 AB Absent . 1 P39 AB Absent . 1 P23 AB Absent . 1 Lyme Igm WB Interpretation Negative . 1, 9 Laboratory test finding 11/30/2017 Sedimentation Rate 7 mm/hr 0-20 10, 11 Differential-WBC Confirm 11/30/2017 Total Cells Counted 100 #CELLS 10 Neutrophils% 53 % 33-73 10 Lymph% 35 % 20-42 10 Monocyte% 7 % 0-10 10 Eosinophil% 3 % 0-5 10 Basophil% 2 % 0-2 10 Platelet Estimate NORMAL 10 RBC Morphology NORMAL 10 Laboratory test finding 11/30/2017 Slide Review DIFF ORDERED 10 CBS W/Automated Diff 11/30/2017 White Blood Count 7.5 K/uL 3.4-10.5 10 Red Blood Count 4.84 M/uL 4.20-5.80 10 Hemoglobin 15.1 gm/dL 12.8-17.0 10 Hematocrit 43.3 % 38.0-48.0 10 Mean Cell Volume 89.5 fl 80.0-96.0 10 Mean Corpuscular HGB 31.2 pg 27.0-33.0 10 Mean Corpuscular HGB Conc 34.9 g/dL 31.7-36.0 10 Platelet Count 276 K/uL 155-360 10 Red Cell Distri Width SD 39.5 fl 36-51 10 Red Cell Distri Width %CV 12.3 % 11.6-15.8 10 Mean Platelet Volume 10.4 fL 6.6-10.6 10 Neut% 50.5 % 33.0-73.0 10 Lymph % 32.3 % 20.0-42.0 10 Faulk % 10.5 % High 0.0-10.0 10 Eo% 4.7 % 0.0-6.6 10 Bas% 2.0 % High 0.0-1.1 10 Neut# 3.77 K/uL 1.8-7.0 10 Lymph # 2.41 K/uL 1.0-4.0 10 Faulk # 0.78 K/uL 0.0-0.8 10 Eos # 0.35 K/uL 0.0-0.5 10 Baso # 0.15 K/uL High 0.0-0.1 10 Lactic Acid 11/30/2017 Lactic Acid 0.9 mmol/L 0.4-1.9 10 Lab Reflex >2.0 for Sepsis? Y 10 Laboratory test finding 11/30/2017 C-Reactive Protein,Quant 7.9 mg/L High <3.0 10 Comprehensive Metabolic 11/30/2017 Glucose 97 mg/dL 74-106 10 Panel BUN 19 mg/dL High 7-18 10 Creatinine 1.4 mg/dL High 0.6-1.3 10 Glom Filtration Rate, Estimate 55 mL/min >60 10 If >60 mL/min >60 10, 12 BUN/Creat 13.5 ratio 10 Sodium 140 mmol/L 136-145 10 Potassium 4.1 mmol/L 3.5-5.1 10 Chloride 106 mmol/L 98-107 10 Carbon Dioxide 29 mmol/L 21-32 10 Anion Gap 5 mEq/L Low 8-16 10 Calcium 8.8 mg/dL 8.5-10.1 10 Total Protein 8.0 g/dL 6.4-8.2 10 Albumin 4.2 g/dL 3.4-5.0 10 Globulin 3.8 g/dL 1.9-4.3 10 Alb/Glob 1.1 ratio 10 Bilirubin,Total 0.5 mg/dL 0.2-1.0 10 Sgot/Ast 32 U/L 15-37 10 SGPT/Alt 55 U/L 12-78 10 Alkaline Phosphatase 94 U/L 45-117 10 Lipid Treatment 07/17/2017 Cholesterol 238 mg/dL High 50-199 13 Triglycerides 186 mg/dL 30-200 13 HDL 44 mg/dL 29-71 13, 14 Chol/ HDL Ratio 5.4 ratio 4.0-6.7 13 VLDL 37 mg/dL High 2-29 13 LDL (Calc) 157 mg/dL High 20-99 13, 15 Alt 29 U/L 3-42 13 Ast 21 U/L 8-42 13 Basic (BMP) 04/16/2017 Sodium 140 mmol/L 135-146 16, 17 Potassium 4.2 mmol/L 3.5-5.2 16 Chloride# 101 mmol/L 97-110 16, 18 Carbon Dioxide 30 mmol/L 24-34 16 Glucose 107 mg/dL High 70-105 16 Creatinine 1.2 mg/dL 0.5-1.4 16 Calcium 9.4 mg/dL 8.5-10.2 16 Non Amber Egfr >60 >60 16, 19 Amber Egfr >60 >60 16, 20 Anion Gap 9 mmol/L 7-16 16, 21 BUN 27 mg/dL High 6-26 16 CBC With Auto Diff 04/16/2017 WBC 9.2 K/uL 4.1-11.0 16 RBC 4.64 M/uL 4.60-6.10 16 Hemoglobin 14.6 gm/dL 13.5-18.0 16 Hematocrit 43.1 % 41.0-53.0 16 MCV 92.8 fL 80.0-97.0 16 MCH 31.4 pg 27.0-32.0 16 MCHC 33.8 g/dL 32.0-36.0 16 RDW 12.6 % 11.5-14.5 16 PLT Count 288 K/ul 140-400 16 MPV 9.4 FL 7.1-10.7 16 Neutrophil 77.8 % High 35.0-75.0 16 Lymphocyte 14.7 % Low 16.0-52.0 16 Monocyte 5.5 % 2.0-10.0 16 Eosinophil 1.0 % 0.0-5.0 16 Basophil 1.0 % 0.0-4.0 16 Abs Neutrophils 7.2 K/uL 2.1-8.0 16 Abs Lymphocytes 1.4 K/uL 0.8-5.5 16 Abs Monocytes 0.5 K/uL 0.1-1.0 16 Abs Eosinophils 0.1 K/uL 0.0-0.5 16 Abs Basophils 0.1 K/uL 0.0-0.3 16 Lipid Treatment 01/01/2017 Cholesterol 240 mg/dL High 50-199 22 Triglycerides 215 mg/dL High 30-200 22 HDL 49 mg/dL 29-71 22, 23 Chol/ HDL Ratio 4.9 ratio 4.0-6.7 22 VLDL 43 mg/dL High 2-29 22 LDL (Calc) 149 mg/dL High 20-99 22, 24 Alt 29 U/L 3-42 22 Ast 21 U/L 8-42 22 Basic (BMP) 01/01/2017 Sodium 140 mmol/L 135-146 22, 25 Potassium 4.3 mmol/L 3.5-5.2 22 Chloride# 105 mmol/L 97-110 22, 26 Carbon Dioxide 28 mmol/L 24-34 22 Glucose 109 mg/dL High 70-105 22 BUN 25 mg/dL 6-26 22 Creatinine 1.2 mg/dL 0.5-1.4 22 Calcium 9.1 mg/dL 8.5-10.2 22 Non Amber Egfr 61 >60 22, 27 Amber Egfr >60 >60 22, 28 Anion Gap 7 mmol/L 7-16 22, 29 Laboratory test finding 01/01/2017 Magnesium 2.1 mg/dL 1.5-2.7 22 Vitamin B12 319 pg/mL 180-914 22 CBC With Auto Diff 09/08/2016 WBC 5.4 [...] -RL 09/08/2016 TSH Receptor AB <0.90 IU/L 30 Basic (BMP) 07/02/2015 Sodium 138 mmol/L 134-142 Potassium 4.2 mmol/L 3.5-5.2 Chloride 104 mmol/L 97-109 Carbon Dioxide 29 mmol/L 24-34 Glucose 96 mg/dL 70-105 BUN 20 mg/dL 6-26 Creatinine 1.1 mg/dL 0.5-1.4 Calcium 9.0 mg/dL 8.5-10.2 Anion Gap 9 mmol/L 6-14 Non Amber Egfr >60 >60 31 Amber Egfr >60 >60 32 Lipid Treatment 07/02/2015 Cholesterol 204 mg/dL High 50-199 Triglycerides 96 mg/dL 30-200 HDL 42 mg/dL 29-71 33 Chol/ HDL Ratio 4.9 ratio 4.0-6.7 VLDL 19 mg/dL 2-29 LDL (Calc) 143 mg/dL High 20-99 34 Alt 28 U/L 3-42 Ast 14 U/L [...] Hepatitis C Virus Antibody NONREACTIVE Nonreactive 1 ACUTE KIDNEY INJURY, ARTHRALGIA 2 Note: Persistent reduction for 3 months or more in an eGFR <60 mL/min/1.73 m2 defines CKD. Patients with eGFR values >/=60 mL/min/1.73 m2 may also have CKD if evidence of persistent proteinuria is present. The original MDRD equation for estimated GFR is not valid for patients less than 18 years of age. Additional information may be found at www.kdoqi.org. 3 Note: Persistent reduction for 3 months or more in an eGFR <60 mL/min/1.73 m2 defines CKD. Patients with eGFR values >/=60 mL/min/1.73 m2 may also have CKD if evidence of persistent proteinuria is present. The original MDRD equation for estimated GFR is not valid for patients less than 18 years of age. Additional information may be found at www.kdoqi.org. 4 Negative for toxigenic C. 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 Negative: No bands or banding patterns which do not meet positive criteria. 9 Note: An equivocal or positive EIA result followed by a negative Western Blot result is considered NEGATIVE. An equivocal or positive EIA result followed by a positive Western Blot is considered POSITIVE by the CDC. Positive: 2 of the following bands: 23,39 or 41 Negative: No bands or banding patterns which do not meet positive criteria. Criteria for positivity are those recommended by CDC/ASTPHLD. p23=Osp C, a19=[id number] Note: Sera from individuals with the following may cross react in the Lyme Western Blot assays: other spirochetal diseases (periodontal disease, leptospirosis, relapsing fever, yaws, and pinta); connective autoimmune (Rheumatoid Arthritis and Systemic Lupus Erythematosus and also individuals with Antinuclear Antibody); other infections ([place] Spotted Fever; Jing-Aviles Virus, and Cytomegalovirus). 10 BODY ACHES, PAIN, DX PNEUMONIA 11 Method: Sediplast Modified Westergren 12 Note: Persistent reduction for 3 months or more in an eGFR <60 mL/min/1.73 m2 defines CKD. Patients with eGFR values >/=60 mL/min/1.73 m2 may also have CKD if evidence of persistent proteinuria is present. The original MDRD equation for estimated GFR is not valid for patients less than 18 years of age. Additional information may be found at www.kdoqi.org. 13 07/25 preOV 14 Per NCEP ATP III Guidelines: Results lower than 40 mg/dL are suggestive of increased risk for coronary artery disease. Results > or=to 60 mg/dL are considered a negative risk factor. 15 Per NCEP ATP III Guidelines: Normal Population <130 Patients with medical conditions: CHD/DM Optimal: <100 Borderline high: 130-159 High: 160-189 Very high: >189 16 cc: Dr Sullivan (FAXED 04/17 - AD) 17 Updated reference range on new analyzer 18 Updated reference range on new analyzer 19 Concerning GFR Guidelines: Normal function or [...] Severely decreased: 15-29 Renal failure: <15 21 Updated reference range on new analyzer 22 12/24 preOV 23 Per NCEP ATP III Guidelines: Results lower than 40 mg/dL are suggestive of increased risk for coronary artery disease. Results > or=to 60 mg/dL are considered a negative risk factor. 24 Per NCEP ATP III Guidelines: Normal Population <130 Patients with medical conditions: CHD/DM Optimal: <100 Borderline high: 130-159 High: 160-189 Very high: >189 25 Updated reference range on new analyzer 26 Updated reference range on new analyzer 27 Concerning GFR Guidelines: Normal function or mild [...] drugs that are excreted by the kidneys. 28 Concerning GFR Guidelines for Americans: Normal function or mild renal disease, if clinically at risk: >/=60 mL/min Moderately decreased: 30-59 Severely decreased: 15-29 Renal failure: <15 29 Updated reference range on new analyzer 30 Reference range: <=1.75 INTERPRETIVE INFORMATION: Thyroid Stimulating Hormone Receptor Ab Autoimmune thyroid disease may be confirmed when TRAb testing is positive. Performed by [facility], [address] [place] [id number] [email or web address], Migel Carlson MD, Lab. Director Unless otherwise specified, testing performed by [facility] [address] [place] [id number] 31 Concerning GFR Guidelines: Normal function or mild [...] drugs that are excreted by the kidneys. 32 Concerning GFR Guidelines for Americans: Normal function or mild renal disease, if clinically at risk: >/=60 mL/min Moderately decreased: 30-59 Severely decreased: 15-29 Renal failure: <15 33 Per NCEP ATP III Guidelines: Results lower than 40 mg/dL are suggestive of increased risk for coronary artery disease. Results > or=to 60 mg/dL are considered a negative risk factor. 34 Per NCEP ATP III Guidelines: Normal Population <130 Patients with medical conditions: CHD/DM Optimal: <100 Borderline high: 130-159 High: 160-189 Very high: >189 Procedures Date CPT Code Description Status 11/26/2017 09183 Measure Blood Oxygen Level Single Determination Completed 04/16/2017 16664 Electrocardiogram Complete Completed 10/14/2013 Colonoscopy Completed Encounters Type Date Location Provider CPT E/M Dx Office Visit 11/26/2017 4:15p [facility] [place] [address] R05 Z68.32 Office Visit 07/24/2017 2:30p [facility] [place] [address] E78.00 K21.9 K58.0 K22.70 M47.816 Z79.899 Z68.33 Office Visit 04/16/2017 2:30p [facility] [place] [address] Z01.810 M54.5 Office Visit 03/07/2017 2:00p [facility] [place] [address] B02.9 Office Visit 01/22/2017 2:30p [facility] [place] [address] E78.00 K21.9 K58.0 K22.70 Office Visit 11/30/2016 4:15p [facility] [place] [address] R19.7 Office Visit 09/06/2016 4:30p [facility] [place] [address] G47.00 R53.83 Office Visit 06/30/2016 1:30p [facility] [place] [address] R07.9 K21.9 E78.00 K58.0 M47.814 J06.9 R97.20 Z79.899 Office Visit 08/09/2015 2:00p [facility] [place] [address] K58.0 K21.9 Office Visit 06/29/2015 1:30p [facility] [place] [address] Z00.00 M25.511 K21.9 K22.70 Z79.899 E78.0 R53.83 Z11.59 Z23 Plan of Care Future Appointment(s):01/16/2018 8:20 am - Schedule, Laboratory at [facility]2017 2:30 pm - Zane Johansen MD at [facility]12/05/2017 - Zane Johansen, MDR50.9 Fever, unspecifiedReferral:Armen Sullivan MD,Follow up:Urgent referral to Dr Sullivan - [place]/Don HeadacheFollow up:.Z68.31 Body mass index ( BMI) 31.0-31.9, adult
[2017-12-27] MEDS ORDERED: NS 0.9% 1000 ML* 1,000 ML IV ONE (16:41)
[2017-12-27] MEDS ORDERED: Metoclopramide IV* 5 MG/ML 2 ML VIAL IV ONE (16:44)
[2017-12-27] MEDS ORDERED: fentaNYL* 50 MCG/ML 2 ML VIAL (100 MCG VIAL) IV SLOW PU ONE ×2 (16:44→20:07)
[2017-12-27] MEDS ORDERED: diPHENhydraMINE IV* 50 MG/ML 1 ml VIAL (BENADRYL) IV ONE (16:44)
[2017-12-27 17:04] LABS: Hematocrit 40 % (42-52); Mean Corpuscular HGB Conc 35 g/dl (31-36); Mean Corpuscular Hemoglobin 32 pg (27-31); Mean Corpuscular Volume 91 fL (80-94); Mean Platelet Volume 8.1 um3 (7.4-10.4); Platelet Count 227 10^3/ul (150-450); Red Blood Count 4.43 10^6/ul (4.00-5.40); Red Cell Distribution Width 14 % (10.5-15); White Blood Count 9.3 10^3/ul (3.5-10.8)
[2017-12-27 17:12] LABS: INR 0.83 (0.77-1.02)
--- NOTE | 2017-12-27 17:15 | RAD ---
HISTORY: Syncope COMPARISONS: November 29, 2017 TECHNIQUE: Multiple contiguous axial CT scans were obtained of the head without intravenous contrast. FINDINGS: HEMORRHAGE/INFARCT: There is no hemorrhage or acute infarct. MASSES/SHIFT: There is no mass or shift. EXTRA-AXIAL SPACES: There are no extra-axial fluid collections. SULCI AND VENTRICLES: The sulci and ventricles are normal in size and position for the patient's stated age. CEREBRUM: There are no focal parenchymal abnormalities. BRAINSTEM: There are no focal parenchymal abnormalities. CEREBELLUM: There are no focal parenchymal abnormalities. VESSELS: The vessels are grossly normal. PARANASAL SINUSES: The paranasal sinuses are clear. ORBITS: The orbits are unremarkable. BONES AND SOFT TISSUE: No bone or soft tissue abnormalities are noted. OTHER: None IMPRESSION: NO ACUTE INTRACRANIAL PATHOLOGY.
[2017-12-27 17:24] LABS: ABS Basophils 0 10^3/ul (0-0.2); ABS Eosinophils 0.4 10^3/ul (0-0.6); ABS Lymphocytes 1.9 10^3/ul (1.0-4.8); ABS Monocytes 0.6 10^3/ul (0-0.8); ABS Neutrophils 6.4 10^3/ul (1.5-7.7)
[2017-12-27 17:25] LABS: EGFR Non-African American 68.8 (>60)
[2017-12-27 17:27] LABS: ABS Basophils 0.4 10^3/ul (0-0.2); ABS Neutrophils 6.3 10^3/ul (1.5-7.7); Monocytes % 3 % (0-7)
--- NOTE | 2017-12-27 17:30 | RAD ---
HISTORY: SYncope COMPARISONS: November 29, 2017 VIEWS: 4: Frontal dual-energy and lateral views of the chest. FINDINGS: CARDIOMEDIASTINAL SILHOUETTE: The cardiomediastinal silhouette is normal. ANTHONY: The anthony are normal. PLEURA: The costophrenic angles are sharp. No pleural abnormalities are noted. LUNG PARENCHYMA: The lungs are clear. ABDOMEN: The upper abdomen is clear. There is no subphrenic gas. BONES AND SOFT TISSUES: No bone or soft tissue abnormalities are noted. OTHER: A dorsal column stimulator is noted. IMPRESSION: NO ACTIVE CARDIOPULMONARY DISEASE.
[2017-12-27 17:48] LABS: Urine Appearance Clear; Urine Blood Negative (Negative); Urine Color Yellow; Urine Ketones Negative (Negative); Urine Protein Negative (Negative); Urine Specific Gravity 1.016 (1.010-1.030); Urine Urobilinogen Negative (Negative)
--- NOTE | 2017-12-27 19:35 | ED ---
Syncope/Near Syncope - HPI Summary HPI Summary: This patient is a 57 year old M presenting to [facility] accompanied by his with a chief complaint of syncope since this PM. Pt denies sx during the day, and that sx onset just as hed gotten home from work. He notes he experienced diarrhea, then soon after he had another episode of diarrhea and new onset abd pain. After the second BM, pt experienced very sudden onset diaphoresis and severe abd pain, then syncopized with LOC, and upon waking he endorsed a 6/10 ARZOLA which is still present, and 3 more episodes of diarrhea. He currently endorses a ARZOLA, neck pain radiating to the head, nausea, and lightheadedness. He denies fever. The patient states that he was in the hospital for 4 days 2 weeks ago for an infection around the permanent stimulator in his back. He notes that Dr. Sullivan in [place] was the neurosurgeon implanting the device. Rx prednisone for 20 days, and since he finished his regimen he has been experiencing ARZOLA and neck pain. The patient was on Abx while in the hospital, and stopped before his discharge on 12/04/17. PMHx fused disc, back problems. - History Of Current Complaint Chief Complaint: EDSyncope Time Seen by Provider: 12/27/17 16:06 Hx Obtained From: Patient Onset/Duration: Sudden Onset, Lasting Hours, Still Present Timing: Constant Context: Unwitnessed, Loss Of Consciousness Activity At Onset: At Rest Associated Head Trauma: No Aggravating Factor(s): Other - diarrhea Alleviating Factor(s): Spontaneous Resolution Associated Signs And Symptoms: Diarrhea, Diaphoresis - heavy, sudden onset, Headache - 6/10, Lightheadedness, Other - nausea, neck pain, abd pain Frequency: Episodes x___ - 1 - Allergies/Home Medications Allergies/Adverse Reactions: Allergies Allergy/AdvReac Type Severity Reaction Status Date / Time steri strips Allergy Blisters Uncoded 11/29/17 17:47 Home Medications: Home Medications Escitalopram (NF) [Lexapro 10 mg (NF)] 10 mg PO DAILY 12/27/17 [History Confirmed 12/27/17] Lactobacillus Acidophilus [Probiotic Acidophilus Sup] 1 tab PO BID 12/27/17 [ History Confirmed 12/27/17] Morphine TAB (NF) 15 mg PO Q4HR PRN 12/27/17 [History Confirmed 12/27/17] PMH/Surg Hx/FS Hx/Imm Hx Endocrine/Hematology History: Denies: Hx Diabetes, Hx Systemic Lupus Erythematosus, Hx Thyroid Disease, Hx Anemia Cardiovascular History: Denies: Hx Hypertension, Hx Pacemaker/ICD, Other Cardiovascular Problems/ Disorders Respiratory History: Denies: Hx Asthma, Hx Chronic Obstructive Pulmonary Disease (COPD), Other Respiratory Problems/Disorders GI History: Reports: Hx Gastroesophageal Reflux Disease - PRN meds, Hx Irritable Bowel Denies: Hx Jaundice, Hx Ulcer, Other GI Disorders History: Reports: Other Problems/Disorders - elevated PSA and being monitored by Dr. Pereira Denies: Hx Renal Disease Musculoskeletal History: Reports: Hx Back Problems - trina and fusion Denies: Hx Rheumatoid Arthritis Sensory History: Denies: Hx Contacts or Glasses, Hx Deafness, Hx Hearing Aid Opthamlomology History: Denies: Hx Contacts or Glasses EENT History: Denies: Hx Deafness Neurological History: Reports: Other Neuro Impairments/Disorders - PAIN CLINIC Psychiatric History: Denies: Hx Panic Disorder - Cancer History Cancer Type, Location and Year: PROSTATE CA Hx Chemotherapy: No Hx Radiation Therapy: No - Surgical History Surgery Procedure, Year, and Place: Back surgery X 4 with fusion/rods, 1999, 2003, 2004, 2009. RIGHT SHOULDER ROTATOR CUFF REPAIR 2013. BELLY BUTTON HERNIA REPAIR 2013. spinal stimulator 2016, then [place] two [place] [facility] [place] x2 - RECON. OF EAR DRUM - NO IMPLANTS. valarie elbows, 1999. dorsal column stimulator, [facility], Apr 2017 Hx Anesthesia Reactions: No Infectious Disease History: Yes Infectious Disease History: Denies: Hx Clostridium Difficile, Hx Hepatitis, Hx Human Immunodeficiency Virus (HIV), Hx of Known/Suspected MRSA, Hx Shingles, Hx Tuberculosis, Hx Known/ Suspected VRE, Hx Known/Suspected VRSA, History Other Infectious Disease, Traveled Outside the [place] in Last 30 Days - Family History Known Family History: Positive: Cardiac Disease - father had CA in his 60's, Other - POS: esophageal CA - Social History Occupation: Employed Full-time Lives: With Family Alcohol Use: Occasionally Alcohol Amount: 3-4 per week Substance Use Type: Reports: None Smoking Status (MU): Never Smoked Tobacco Have You Smoked in the Last Year: No Review of Systems Positive: Skin Diaphoresis. Negative: Fever Positive: Abdominal Pain, Diarrhea, Nausea Positive: no symptoms reported Positive: Arthralgia - neck Neurological: Other - lightheadedness Positive: Headache, Syncope - LOC All Other Systems Reviewed And Are Negative: Yes Physical Exam - Summary Physical Exam Summary: VITAL SIGNS: Reviewed. GENERAL: Patient is a well-developed and nourished male who is lying comfortable in the stretcher. Patient is not in any acute respiratory distress. HEAD AND FACE: No signs of trauma. No ecchymosis, hematomas or skull depressions. No sinus tenderness. EYES: PERRLA, EOMI x 2, No injected conjunctiva, no nystagmus. EARS: Hearing grossly intact. Ear canals and tympanic membranes are within normal limits. MOUTH: Oropharynx within normal limits. NECK: Supple, trachea is midline, no adenopathy, no JVD, no carotid bruit, no c- spine tenderness, neck with full ROM. CHEST: Symmetric, no tenderness at palpation LUNGS: Clear to auscultation bilaterally. No wheezing or crackles. CVS: Regular rate and rhythm, S1 and S2 present, no murmurs or gallops appreciated. ABDOMEN: Soft, non-tender. No signs of distention. No rebound no guarding, and no masses palpated. Bowel sounds are normal. EXTREMITIES: FROM in all major joints, no edema, no cyanosis or clubbing. NEURO: Normal. Alert and oriented x 3. No acute neurological deficits. Speech is normal and follows commands. SKIN: Dry and warm Triage Information Reviewed: Yes Vital Signs On Initial Exam: Initial Vitals Temp Pulse Resp BP Pulse Ox 98.3 F 72 20 119/63 97 12/27/17 15:58 12/27/17 15:58 12/27/17 15:58 12/27/17 15:58 12/27/17 15:58 Vital Signs Reviewed: Yes - [place] Coma Scale Best Eye Response: 4 - Spontaneous Best Motor Response: 6 - Obeys Commands Best Verbal Response: 5 - Oriented Coma Scale Total: 15 Diagnostics - Vital Signs Vital Signs Temp Pulse Resp BP Pulse Ox 12/27/17 17:34 16 12/27/17 15:58 98.3 F 72 20 119/63 97 - Laboratory Lab Results: Lab Results 12/27/17 12/27/17 12/27/17 Range/Units 16:51 16:51 16:51 WBC 9.3 (3.5-10.8) 10^3/ul RBC 4.43 (4.00-5.40) 10^6/ul Hgb 14.0 (14.0-18.0) g/dl Hct 40 L (42-52) % MCV 91 (80-94) fL MCH 32 H (27-31) pg MCHC 35 (31-36) g/dl RDW 14 (10.5-15) % Plt Count 227 (150-450) 10^3/ul MPV 8.1 (7.4-10.4) um3 Neut % (Auto) Not Reportable Lymph % (Auto) Not Reportable [place] % (Auto) Not Reportable Eos % (Auto) Not Reportable Baso % (Auto) Not Reportable Absolute Neuts (auto) 6.4 (1.5-7.7) 10^3/ul Absolute Lymphs (auto) 1.9 (1.0-4.8) 10^3/ul Absolute Monos (auto) 0.6 (0-0.8) 10^3/ul Absolute Eos (auto) 0.4 (0-0.6) 10^3/ul Absolute Basos (auto) 0 (0-0.2) 10^3/ul Absolute Nucleated RBC Not Reportable Neutrophils % 68 (38-83) % Lymphocytes % 17 L (25-47) % Reactive Lymphs % 4 (0-6) % Monocytes % 3 (0-7) % Eosinophils % 4 (0-6) % Basophils % 4 H (0-2) % Nucleated RBC % Not Reportable Abs Neuts (Manual) 6.3 (1.5-7.7) 10^3/ul Abs Lymphs (Manual) 1.6 (1.0-4.8) 10^3/ul Abs Monocytes (Manual) 0.3 (0-0.8) 10^3/ul Absolute Eos (Manual) 0.4 (0-0.6) 10^3/ul Abs Basophils (Manual) 0.4 H (0-0.2) 10^3/ul Normal RBC Morphology Normal (Normal) Hem Pathologist Commnt Pending INR (Anticoag Therapy) (0.77-1.02) APTT (26.0-36.3) seconds Sodium 138 (135-145) mmol/L Potassium 4.0 (3.5-5.0) mmol/L Chloride 107 (101-111) mmol/L Carbon Dioxide 23 (22-32) mmol/L Anion Gap 8 (2-11) mmol/L BUN 22 (6-24) mg/dL Creatinine 1.10 (0.67-1.17) mg/dL Est GFR ( Amer) 83.2 (>60) Est GFR (Non-Af Amer) 68.8 (>60) BUN/Creatinine Ratio 20.0 (8-20) Glucose 117 H (70-100) mg/dL Lactic Acid 1.1 (0.5-2.0) mmol/L Calcium 8.9 (8.6-10.3) mg/dL Magnesium 2.2 (1.9-2.7) mg/dL Total Bilirubin 0.30 (0.2-1.0) mg/dL AST 21 (13-39) U/L ALT 38 (7-52) U/L Alkaline Phosphatase 71 (34-104) U/L Ammonia (16-53) mcmol/L Troponin I 0.00 (<0.04) ng/mL B-Natriuretic Peptide ( - 100) pg/mL Total Protein 6.3 L (6.4-8.9) g/dL Albumin 3.9 (3.2-5.2) g/dL Globulin 2.4 (2-4) g/dL Albumin/Globulin Ratio 1.6 (1-3) TSH 1.25 (0.34-5.60) mcIU/mL Urine Color Urine Appearance Urine pH (5-9) Ur Specific [place] (1.010-1.030) Urine Protein (Negative) Urine Ketones (Negative) Urine Blood (Negative) Urine Nitrate (Negative) Urine Bilirubin (Negative) Urine Urobilinogen (Negative) Ur Leukocyte Esterase (Negative) Urine Glucose (Negative) 12/27/17 12/27/17 12/27/17 Range/Units 16:51 16:51 17:33 WBC (3.5-10.8) 10^3/ul RBC (4.00-5.40) 10^6/ul Hgb (14.0-18.0) g/dl Hct (42-52) % MCV (80-94) fL MCH (27-31) pg MCHC (31-36) g/dl RDW (10.5-15) % Plt Count (150-450) 10^3/ul MPV (7.4-10.4) um3 Neut % (Auto) Lymph % (Auto) [place] % (Auto) Eos % (Auto) Baso % (Auto) Absolute Neuts (auto) (1.5-7.7) 10^3/ul Absolute Lymphs (auto) (1.0-4.8) 10^3/ul Absolute Monos (auto) (0-0.8) 10^3/ul Absolute Eos (auto) (0-0.6) 10^3/ul Absolute Basos (auto) (0-0.2) 10^3/ul Absolute Nucleated RBC Neutrophils % (38-83) % Lymphocytes % (25-47) % Reactive Lymphs % (0-6) % Monocytes % (0-7) % Eosinophils % (0-6) % Basophils % (0-2) % Nucleated RBC % Abs Neuts (Manual) (1.5-7.7) 10^3/ul Abs Lymphs (Manual) (1.0-4.8) 10^3/ul Abs Monocytes (Manual) (0-0.8) 10^3/ul Absolute Eos (Manual) (0-0.6) 10^3/ul Abs Basophils (Manual) (0-0.2) 10^3/ul Normal RBC Morphology (Normal) Hem Pathologist Commnt INR (Anticoag Therapy) 0.83 (0.77-1.02) APTT 28.1 (26.0-36.3) seconds Sodium (135-145) mmol/L Potassium (3.5-5.0) mmol/L Chloride (101-111) mmol/L Carbon Dioxide (22-32) mmol/L Anion Gap (2-11) mmol/L BUN (6-24) mg/dL Creatinine (0.67-1.17) mg/dL Est GFR ( Amer) (>60) Est GFR (Non-Af Amer) (>60) BUN/Creatinine Ratio (8-20) Glucose (70-100) mg/dL Lactic Acid (0.5-2.0) mmol/L Calcium (8.6-10.3) mg/dL Magnesium (1.9-2.7) mg/dL Total Bilirubin (0.2-1.0) mg/dL AST (13-39) U/L ALT (7-52) U/L Alkaline Phosphatase (34-104) U/L Ammonia 50 (16-53) mcmol/L Troponin I (<0.04) ng/mL B-Natriuretic Peptide 14 ( - 100) pg/mL Total Protein (6.4-8.9) g/dL Albumin (3.2-5.2) g/dL Globulin (2-4) g/dL Albumin/Globulin Ratio (1-3) TSH (0.34-5.60) mcIU/mL Urine Color Yellow Urine Appearance Clear Urine pH 6.0 (5-9) Ur Specific [place] 1.016 (1.010-1.030) Urine Protein Negative (Negative) Urine Ketones Negative (Negative) Urine Blood Negative (Negative) Urine Nitrate Negative (Negative) Urine Bilirubin Negative (Negative) Urine Urobilinogen Negative (Negative) Ur Leukocyte Esterase Negative (Negative) Urine Glucose Negative (Negative) Result Diagrams: 12/27/17 16:51 12/27/17 16:51 Lab Statement: Any lab studies that have been ordered have been reviewed, and results considered in the medical decision making process. - Radiology CXR Xray Interpretation: No Acute Changes Radiology Interpretation Completed By: Radiologist - No active cardiopulmonary disease. Dr. Hughes has reviewed this report. - CT Brain CT Interpretation: No Acute Changes CT Interpretation Completed By: Radiologist - No acute intracranial pathology. Dr. Hughes has reviewed this report. - EKG 1725 Cardiac Rate: NL - 69 EKG Rhythm: Sinus Rhythm Ectopy: None EKG Interpretation: multiple T wave inversions in V2-V5. National Institutes Of Health - NIH Scale Level of Consciousness: Alert/Keenly Responsive Ask Patient the Month and His/Her Age: Both Correct Ask Pt to Open/Close Eyes and Signal Worker Helper/Release Non-Paretic Hand: Both Correctly Best Gaze (Only Horizontal Eye Movement): Normal Visual Field Testing: No Visual Loss Facial Paresis-Pt to Smile & Close Eyes or Grimace Symmetry: Normal/Symmetrical Motor Function - Right Arm: No Drift-Holds 10 Seconds Motor Function - Left Arm: No Drift-Holds 10 Seconds Motor Function - Right Leg: No Drift-Holds 10 Seconds Motor Function - Left Leg: No Drift-Holds 10 Seconds Limb Ataxia-Must be out of Proportion to Weakness Present: Absent Sensory (Use Pinprick to Test Arms/Legs/Trunk/Face): Normal Best Language (Describe Picture, Name Items): No Aphasia Dysarthria (Read Several Words): Normal Extinction and Inattention: No Abnormality Total Score: 0 Course/Dx Course Of Treatment: This patient is a 49-year-old male who presents to the emergency department with a chief complaint that the patient had a syncopal episode. He reports that he was doing well this morning. He went to work and he had no complaints. He left work this afternoon and he went home and he had the urge to have a bowel movement. He had the first bowel movement and he had no problems. Then he had another bowel movement which was watery diarrhea without any blood or mucus. Afterwards the patient became very diaphoretic and he had a syncopal episode. Afterwards that he had 3 additional bowel movements which was watery diarrhea. He also reports that he was discharged from [facility] on December 04 after he was treated for an infection around his stimulator in the back. Since then the patient has been having on and off headaches. He hasnt seen his neurologist from [place] and given prednisone. The symptoms have improved. He denies any fevers or chills however he has been developing headaches. Patient also reports some dizziness today. He has no other complaints. Chest x-ray impression: No acute cardiopulmonary disease. Head CT impression: No acute intracranial pathology. Blood work without any significant abnormality. Urinalysis negative for UTI. Fecal leukocytes positive. C difficile is negative. Stool cultures still pending. The patient reports that he continues to have a headache. Therefore the patient was given an additional dose of fentanyl. At this time I think that the patient may benefit of a lumbar puncture to rule out any type of infection or a bleed. Patient request anesthesiology to do this procedure since the patient has was in the lumbar spine and effusion L5 and S1. At this time I discussed the case with Dr. Covarrubias from anesthesiology and she doesnt recommend a lumbar puncture since the patient has an stimulator and isnt a contraindication to do a lumbar puncture. Therefore, I discussed my physical exam and findings with Dr. Cedillo from neurology and he recommends a CTA of the brain and he will consult with the morning. I discussed my physical exam and findings with Dr. Salguero from the hospital services who accepted the patient for admission. Patient continues to be hemodynamically stable alert and oriented 3. - Diagnoses Differential Diagnosis/HQI/PQRI: Positive: Cerebral Vascular Accident, Hypoglycemia, Metabolic Reaction, Medication Reaction, Transient Ischemic Attack , Vasovagal Episode Provider Diagnoses: Headache, Syncope, Diarrhea - Physician Notifications Discussed Care of Patient With: Shobha Covarrubias Time Discussed With Above Provider: 20:09 Instructed by Provider To: Other - Stated that a stimulator is a counter- indication for a LP. Discharge - Sign-Out/Discharge Documenting (check all that apply): Patient Departure - admit - Discharge Plan Condition: Fair Disposition: ADMITTED TO [facility] Referrals: Zane Johansen MD [Primary Care Provider] - - Billing Disposition and Condition Condition: FAIR Disposition: Admitted to [facility] - Attestation Statements Document Initiated by Scribe: Yes Documenting Scribe: Mikey Artis Provider For Whom Garciaibe is Documenting (Include Credential): Dr. Boyd Hughes MD Scribe Attestation: IMikey, scribed for Dr. Boyd Hughes MD on 12/27/17 at 2027. Scribe Documentation Reviewed: Yes Provider Attestation: The documentation as recorded by the Mikey ferro accurately reflects the service I personally performed and the decisions made by me, Dr. Boyd Hughes MD Consult Consult: 2012: Dr. Cedillo: recommends a CTA, admission to hospitalist. Will consult with patient tomorrow morning. 2018: Dr. Salguero: Accepts admission.
[2017-12-27] MEDS ORDERED: Iohexol 350* (CONTRAST) 500 ML MDV IV ONE (21:52)
[2017-12-27] MEDS ORDERED: fentaNYL* 50 MCG/ML 2 ML VIAL (100 MCG VIAL) ONE (22:45)
[2017-12-27] MEDS: fentaNYL* 50 MCG/ML 2 ML VIAL (100 MCG VIAL) IV SLOW PU PRN (22:49)
[2017-12-27] MEDS: NS 0.9% 1000 ML* 1,000 ML IV SCH (23:00)
--- NOTE | 2017-12-27 23:00 | RAD ---
EXAM: CT Angiography Head With Intravenous Contrast CLINICAL HISTORY: 57 years old, male; Pain; Headache; Additional info: Headaches TECHNIQUE: Axial computed tomographic angiography images of the head with intravenous contrast using CT angiography protocol. All CT scans at this facility use at least one of these dose optimization techniques: automated exposure control; mA and/or kV adjustment per patient size (includes targeted exams where dose is matched to clinical indication); or iterative reconstruction. MIP reconstructed images were created and reviewed. CONTRAST: 80 mL of OMNIPAQUE 350 administered intravenously. COMPARISON: No relevant prior studies available. FINDINGS: Right internal carotid artery: Minimal atherosclerotic right internal carotid artery in the cavernous segment causing no stenosis. Right anterior cerebral artery: Normal. No occlusion or significant stenosis. No aneurysm. Right middle cerebral artery: Normal. No occlusion or stenosis. No aneurysm. Right posterior cerebral artery: Normal. No occlusion or significant stenosis. No aneurysm. Right vertebral artery: Normal as visualized. Left internal carotid artery: Minimally atherosclerotic left internal carotid artery in the cavernous segment causing no stenosis. Left anterior cerebral artery: Normal. No occlusion or stenosis. No aneurysm. Left middle cerebral artery: Normal. No occlusion or stenosis. No aneurysm. Left posterior cerebral artery: Normal. No occlusion or stenosis. No aneurysm. Left vertebral artery: Normal as visualized. Basilar artery: Normal. No occlusion or stenosis. No aneurysm. Brain: No abnormal brain enhancement. IMPRESSION: Minimally atherosclerotic non-stenotic bilateral internal carotid arteries. Otherwise normal head CTA. EXAM: CT Angiography Neck With Intravenous Contrast CLINICAL HISTORY: 57 years old, male; Pain; Headache; Additional info: Headaches TECHNIQUE: Axial computed tomographic angiography images of the neck with intravenous contrast using CT angiography protocol. All CT scans at this facility use at least one of these dose optimization techniques: automated exposure control; mA and/or kV adjustment per patient size (includes targeted exams where dose is matched to clinical indication); or iterative reconstruction. MIP reconstructed images were created and reviewed. CONTRAST: 80 mL of OMNIPAQUE 350 administered intravenously. 80 mL of OMNIPAQUE 350 administered intravenously. COMPARISON: BRAIN WO CT BRAIN WO 11/29/2017 6:27 PM FINDINGS: VASCULATURE: Right common carotid artery: Normal. No stenosis. No dissection or occlusion. Right internal carotid artery: Normal. Intracranial segment is patent with no stenosis. No aneurysm. Right external carotid artery: Normal. No occlusion. Right vertebral artery: Normal. No significant stenosis. No dissection or occlusion. Left common carotid artery: Normal. No stenosis. No dissection or occlusion. Left internal carotid artery: Normal. Intracranial segment is patent with no stenosis. No aneurysm. Left external carotid artery: Normal. No occlusion. Left vertebral artery: Normal. No significant stenosis. No dissection or occlusion. NECK: Bones/joints: Mild multilevel cervical spondylopathy. No acute fracture. No dislocation. Soft tissues: Normal as visualized. No mass. Thyroid: Low attenuating nodules right thyroid lobe measuring 2.0 and 0.7 cm neither of which are calcified. CAROTID STENOSIS REFERENCE USING NASCET CRITERIA: % ICA stenosis = (1 - narrowest ICA diameter/diameter of distal cervical ICA) x 100. Mild - <50% stenosis. Moderate - 50-69% stenosis. Severe - 70-94% stenosis. Near occlusion - 95-99% stenosis. Occluded - 100% stenosis. IMPRESSION: 1. Normal neck CTA. 2. Right thyroid lobe nodules. ACR White Paper guidelines (Willie CASTELAN, et al. JACR 2015;12(2):143-50) suggest further evaluation with thyroid ultrasound.
--- NOTE | 2017-12-27 23:53 | HP ---
CC: Dr. Linder. HISTORY AND PHYSICAL: DATE OF ADMISSION: 12/27/17 PRIMARY CARE PHYSICIAN: Dr. Linder. PAIN SPECIALIST: Dr. Gimenez. CHIEF COMPLAINT: Syncope and headache. HISTORY OF PRESENT ILLNESS: Mr. Smyth is a 57-year-old male who has a history of chronic back pa in, depression, and low-grade prostate cancer who presents to the emergency room today with complaint s of a syncopal episode. The patient states that he was recently hospitalized from 11/30/17 through 12/04/17 at [facility] for a complaint of headache. During that hospitalizatio n, the patient states he was worked up for meningitis and Lyme disease. These both were reportedly r uled out. Asking if spinal fluid was sent for varicella or herpes testing, he states that the does n ot recall hearing that. He states that he was treated with aggressive IV antibiotics while hospitali zed and sent home on oral antibiotics. The patient then followed up with his primary care provider w ho stopped the antibiotics. He then saw a neurosurgical PA from [place] who works with the neurosu joyce who placed his spinal stimulator and was started on prednisone for 20 days. The patient states that he was taking prednisone; however, it appears that this was in fact dexamethasone. He states t hat the steroid stopped this past Sunday. The neurosurgical PA questioned whether or not the spinal stimulator was causing the headaches as this is an unfortunate but rare complication per the patient. The patient states that when he left [facility], he generally was feeling okay and his heada ches were at bay. His headache stayed fine while on the steroid. Since stopping the steroid this pa st Sunday he noted the headaches have returned. He describes this as a severe headache at a 5/6 leve l. There is no significant photophobia or phonophobia. He does have associated nausea with them. H e states that he generally was in his usual state of health today when he had a bowel movement. He t hen had a second bowel movement with this. He suddenly became very sweaty and the next thing he knew he was on the floor. The patient came too quickly. Because of the syncopal episode the patient was brought to the emergency room via ambulance. In the ER, the patient again complained of severe head ache. The patient denies any recent fevers or chills. He states his appetite has been good. He has no neurologic symptoms outside of the headache. PAST MEDICAL HISTORY: 1. Chronic back pain. 2. History of low-grade prostate cancer, currently under surveillance. 3. Depression. PAST SURGICAL HISTORY: 1. Left ear surgery x3. 2. Bilateral elbow surgery for tennis elbow. 3. Two diskectomies. 4. Lumbar fusion. 5. Daniel insertion at the lumbar spine. 6. Right arthroscopic shoulder surgery. 7. Lumbar stimulator. MEDICATIONS: 1. Omeprazole 20 mg p.o. daily. 2. Lexapro 10 mg p.o. daily. 3. Lactobacillus 1 tab p.o. b.i.d. 4. Morphine 15 mg p.o. q.4 hours p.r.n. pain. ALLERGIES: STERI-STRIPS and PAPER TAPE. The patient's indicates that anesthesia causes urinary retention. FAMILY HISTORY: Mom is at the age of 78 of complications from COPD. Dad at the age of 71 of esophageal cancer. SOCIAL HISTORY: The patient does not smoke. He drinks alcohol on occasion. 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 He is . He has 1 child. His , Liberty, is his health care proxy. REVIEW OF SYSTEMS: Complete 11 system review of systems is obtained. Pertinent positives and negati ves are as per HPI and in addition the patient does complain of some vague abdominal discomfort curre ntly, but this has not been a significant issue for him recently. He also complains of increased fat igue recently. PHYSICAL EXAMINATION GENERAL: The patient is a well-developed middle-aged male seen lying in the stretcher in no acute di stress. VITAL SIGNS: Blood pressure of 108/71, pulse 66, respirations 17, temp 98.3, O2 sat 97% on room air. HEENT: Pupils are equal and round. Extraocular muscles are intact. Oropharynx is clear. Oral muco sa is moist. There is no submandibular, cervical, or supraclavicular adenopathy. Thyroid is not enl arged, no thyroid nodules noted. CARDIAC: Normal S1 and S2. Regular, rate, and rhythm. I do not appreciate any murmurs. There is n o lower extremity edema. PULMONARY: Lungs are clear to auscultation bilaterally. ABDOMEN: Bowel sounds present. Abdomen is soft, nontender, and nondistended. MUSCULOSKELETAL: There is no cyanosis or clubbing in the digits. There is full active range of paige on of all 4 extremities. NEUROLOGIC: Cranial nerves II through XII grossly intact. Sensation is intact to light touch throug hout. STRENGTH: 5/5 and symmetric in both upper and lower extremities bilaterally. PSYCH: The patient is alert, he is oriented x3. Affect appears appropriate. SKIN: Warm and dry. The patient has what appear to be crusted over lesions clustered together on th e right upper buttock. The patient states that this is coming on over the last several years though flared up significantly after leaving the hospital at [place]. He states that this medina and itches and is somewhat painful. LABORATORY DATA: WBC 9.3, hemoglobin 14.0, hematocrit 40, platelets 227, INR 0.83. Sodium 138, pota ssium 4.0, chloride 107, CO2 of 23, BUN 22, creatinine 1.10, glucose 117, lactic acid 1.1. Calcium 8 .9, magnesium 2.2, bilirubin 0.3. AST 21, ALT 30, alk phos 71, ammonia 50, troponin 0, BNP 14, album in 3.9, and TSH 1.25. Urinalysis reveals a specific gravity of 1.016 and otherwise negative for signs of infection. EKG reveals normal sinus rhythm with nonspecific T-wave changes in the inferior and i nverted T-waves in the anterior leads. This is essentially unchanged from 2016. Chest x-ray no acti ve cardiopulmonary disease. CT brain: No acute intracranial pathology. ASSESSMENT AND PLAN: Mr. Smyth is a 57-year-old male with a history of chronic pain and recently recurrent headaches who was admitted to [facility] on 11/30/17 through 8 where he was evaluated for a possible meningitis, ultimately determined not to have meningitis and discharged home to follow up with his neurosurgeon who felt that perhaps his headaches were related t o his spinal stimulator. On the day of admission the patient had a loose bowel movement followed by a syncopal episode. 1. Syncopal episode. The patient describes what sounds to be vasovagal syncope. He is very aware, b ecoming very diaphoretic prior to passing out. This was timed with the bowel movement. This is my s uspicion of what occurred. The patient will be monitored on telemetry and a transthoracic echocardio gram will be obtained. At this point no further evaluation will be ordered. However, if any concern findings on telemetry are identified further workup should be pursued. 2. Diarrhea. The patient states that his stools have not been completely normal since being on chanel ral days of antibiotics. He states that he is going much more frequently than he typically would. H is stool is C. diff negative. The patient's bowel frequency will be monitored. 3. Headache. There was concern from the ER provider that perhaps the patient needed another lumbar puncture. Anesthesia indicated to the ER provider that lumbar puncture should not be performed due t o his spinal stimulator; however, a nutrition representative for the company that makes the spinal stimulator t hat the patient has states lumbar puncture is possible. The patient, however, has had several lumbar surgeries making the lumbar puncture likely more difficult than the average person. Additionally, I do not feel that the patient needs a lumbar puncture at this time as the patient's symptoms are not classic for meningitis. He has had a headache that has waxed and waned over the last several months. He has had no fevers, no chills, no light sensitivity. The patient does have what I feel is concer wilson for possible varicella zoster on his right upper buttock, so perhaps meningitis will be a possib ility with this virus; however, again this seems unlikely. Additionally, I do not think that his sym ptoms fit with subarachnoid hemorrhage again due to the waxing and waning nature of his symptoms. Dr Lamar Cedillo was contacted by the emergency room provider and will consult tomorrow. CTA of the head and neck has been recommended by Dr. Cedillo. This will be obtained this evening. We will utilize Fentany l p.r.n. as well as Zofran for nausea. 4. Depression. We will continue Lexapro. 5. Gastroesophageal reflux disease. Continue omeprazole. 6. Deep vein thrombosis prophylaxis. According to the adult thrombosis prophylaxis risk factor asse ssment guide, the patient has a total risk factor score of 2 making him moderate risk. At this point I am going to hold off on starting subcu heparin in case Dr. Cedillo does determine the patient will n eed a lumbar puncture. The patient can be ambulatory. 7. Code status is full. TIME SPENT: Sixty five minutes was spent admitting this patient. [id number]/[facility] #: [id number]
[2017-12-28] MEDS: fentaNYL* 50 MCG/ML 2 ML VIAL (100 MCG VIAL) IV SLOW PU PRN (06:23)
[2017-12-28] MEDS: NS 0.9% 1000 ML* 1,000 ML IV SCH ×2 (06:50→14:45)
--- NOTE | 2017-12-28 08:37 | PN ---
Subjective Date of Service: 12/28/17 Interval History: Mr. Smyth states that he continues to have a 5/10 headache, unchanged from the headache he has had since he had the spinal stimulator placed. He denies other complaint including chest pain, SOB, nausea, or abdominal pain. He has had no further diarrhea. He has been up ambulating without lightheadedness. Objective Active Medications: Citalopram Hydrobromide (Celexa Tab*) 20 mg PO DAILY LADY Fentanyl Citrate (Fentanyl*) 50 mcg IV SLOW PU Q4H PRN Sodium Chloride (Ns 0.9% 1000 Ml*) 1,000 mls @ 125 mls/hr IV PER RATE LADY Influenza Virus Vaccine (Fluarix *Quad* 2018-*) 0.5 ml IM .ONCE ONE Morphine Sulfate (Morphine Oral.Soln 10 Mg*) 15 mg PO Q4HR PRN Omeprazole (Prilo Reasosec Cap*) 20 mg PO DAILY LADY Pneumococcal Polyvalent Vaccine (Pneumococcal Vac 23-Polyvalent*) 0.5 ml IM .ONCE ONE Vital Signs: Temp Pulse Resp BP Pulse Ox 98.4 F 64 18 110/70 95 12/28/17 07:20 12/28/17 07:20 12/28/17 08:03 12/28/17 08:10 12/28/17 07:20 Oxygen Devices in Use Now: None Appearance: Male sitting up on edge of bed in NAD Eyes: No Scleral Icterus Ears/Nose/Mouth/Throat: Mucous Membranes Moist Neck: Trachea Midline Respiratory: Symmetrical Chest Expansion and Respiratory Effort, Clear to Auscultation Cardiovascular: NL Sounds; No Murmurs; No JVD, No Edema Abdominal: NL Sounds; No Tenderness; No Distention Lymphatic: No Cervical Adenopathy Extremities: No Edema Skin: No Rash or Ulcers Neurological: Alert and Oriented x 3, NL Muscle Strength and Tone Nutrition: Taking PO's Result Diagrams: 12/27/17 16:51 12/27/17 16:51 Additional Lab and Data: . Microbiology and Other Data: . Assess/Plan/Problems-Billing Assessment: Mr. Smyth is a 57 yo male with a PMH of recent admission to [facility] for headache currently thought to be a side effect of his implanted spinal stimulator treated with dexamethaxone successfully who was admitted on 12/27/17 after a syncopal episode in the bathroom in the setting of diarrhea with return of severe headache (off dexamethasone). - Patient Problems (1) Syncope Comment: - Telemetry without signficant arrhythmmia - Echo without wall motion or valvular abnormality, intact EF. HX of cardiac cath 2 years ago which showed no significant CAD. - Suspect vasovagal syncope in setting of diarrhea. (2) Headache Comment: - Minimal carotid athersclerosis, otherwise normal CTA head and neck. - Likely secondary to spinal stimulator as started when this was placed, plan to follow up in [place] with neurosurgery team regarding removal of device. (3) Diarrhea Comment: - Resolved. - Cdiff negative, likely secondary to recent antibiotic use. (4) Chronic back pain Comment: - Continue morphine prn. (5) GERD (gastroesophageal reflux disease) Comment: - Continue omeprazole. (6) Depression Comment: - Continue citalopram. (7) DVT prophylaxis (8) Full code status Comment: Status and Disposition: Discharge to home.
[2017-12-28] MEDS ORDERED: Citalopram TAB* 20 MG PO SCH (09:00)
[2017-12-28] MEDS ORDERED: Omeprazole CAP* 20 MG PO SCH (09:00)
[2017-12-28] MEDS ORDERED: Pneumococcal *Vac Polyvalent 0.5 ML VIAL IM ONE (09:00)
[2017-12-28] MEDS: Morphine ORAL.SOLN 10 mg* 2 MG/ML UDC 5 ml PO PRN ×2 (10:14→17:23)
[2017-12-28] MEDS ORDERED: Perflutren Lipid Microsphere* 3 ML VIAL ONE (14:07)
[2017-12-28 17:26] VITALS: BP 104/65
--- NOTE | 2017-12-28 17:49 | ECHO ---
Patient: ALEX PARADA [facility] Rec#: [id number] : 1960 Date: 12/28/2017 Age: 57y Height: 173 cm / 68.1 in Weight: 90.7 kg / 199.9 lbs Sex: M BSA: 2.05 Room#: 416 Admit Date#: 12/27/2017 Type: Inpatient Referring: Shira Salguero DO Reading: Alfred Sheikh MD Kiln Remover: Raquel Maldonado RN RDCS CC: Zane Johansen MD Transthoracic Echocardiogram Indication: Syncope BP: 105/59 HR: 64 Rhythm: NSR Findings History: Chronic back pain, depression, prostate cancer, recurrent headaches Technical Comments: The study is technically limited due to patient body habitus. Left Ventricle: The left ventricular chamber size is normal. Mild concentric left ventricular hypertrophy is observed. There are multiple regional wall motion abnormalities. The estimated ejection fraction is 50-55%. mild relative hypokinesis of the mid to distal posterior and distal lateral segments and akinesis at the inferior base which may be a normal variant vs old infarct. Abnormal left ventricular diastolic filling is observed, consistent with impaired relaxation. The apical lateral wall segment is hypokinetic (score 2). The basal inferior wall segment is akinetic (score 3). Overall wallmotion score index is 1.19 Left Atrium: The left atrium is slightly dilated. Right Ventricle: The right ventricle is mildly dilated. The right ventricular global systolic function is mildly reduced. Right Atrium: The right atrial cavity size is normal. Aortic Valve: The aortic valve is trileaflet. The aortic valve leaflets are mildly thickened. There is a trace of aortic regurgitation. There is no evidence of aortic stenosis. Mitral Valve: The mitral valve leaflets are mildly thickened. There is mild mitral regurgitation. There is no evidence of mitral stenosis. Tricuspid Valve: The tricuspid valve leaflets are normal. There is trace tricuspid regurgitation. Unable to estimate the right ventricular systolic pressure. There is no tricuspid stenosis. Pulmonic Valve: The pulmonic valve appears normal. There is a trace pulmonic regurgitation. There is no pulmonic stenosis. Pericardium: There is no significant pericardial effusion. A pericardial fat pad is visualized. Aorta: There is no dilatation of the ascending aorta. There is no dilatation of the aortic arch. There is no dilation of the aortic root. Pulmonary Artery: The main pulmonary artery appears normal. Venous: The inferior vena cava appears normal in size. There is a greater than 50% respiratory change in the inferior vena cava dimension. Contrast: Definity was used to optimize study. A total of 4 ml of diluted Definity was given IV. Summary: There was not any prior study for comparison. Conclusions Mild concentric left ventricular hypertrophy is observed. The estimated ejection fraction is 50-55%. mild relative hypokinesis of the mid to distal posterior and distal lateral segments and akinesis at the inferior base which may be a normal variant vs old infarct. Abnormal left ventricular diastolic filling is observed, consistent with impaired relaxation. The left atrium is slightly dilated. The right ventricle is mildly dilated. The right ventricular global systolic function is mildly reduced. The aortic valve leaflets are mildly thickened. There is a trace of aortic regurgitation. There is mild mitral regurgitation. There is trace tricuspid regurgitation. Measurements Name Value Normal Range RVIDd (AP) 2D 3.7 cm (0.9 - 2.6) RVDdMajor (2D) 3.8 cm (2.2 - 4.4) RAd ISD 4CH 4.8 cm (3.4 - 4.9) RA (A4C)W 3.6 cm (2.9 - 4.6) IVSd (2D) 1.1 cm (0.6 - 1) LVPWd (2D) 1.1 cm (0.6 - 1) LVIDd (2D) 4.9 cm (3.6 - 5.4) LVIDs (2D) 3.3 cm - LV FS (2D) 33 % (25 - 45) Aortic Annulus 2.4 cm (1.4 - 2.6) Ao root diameter (2D) 3.5 cm (2.1 - 3.5) Ascending Ao 3 cm (2.1 - 3.4) Aortic arch 3.1 cm (1.8 - 3.4) LA dimension (AP) 2D 4.1 cm (2.3 - 3.8) LAd ISD 4CH 5 cm (2.9 - 5.3) LA ISD 4CH W 4.4 cm (2.5 - 4.5) Name Value Normal Range LA ESV BP (A/L) index 25.7 ml/m2 - Name Value Normal Range MV E-wave Vmax 0.8 m/sec - MV deceleration time 239 msec - MV A-wave Vmax 0.73 m/sec - LV septal e' Vmax 0.06 m/sec - LV lateral e' Vmax 0.08 m/sec - LV E:e' septal ratio 13.3 ratio - LV E:e' lateral ratio 10 ratio - Name Value Normal Range AV Vmax 1.4 m/sec - AV VTI 29.2 cm - AV peak gradient 7 mmHg - AV mean gradient 4 mmHg - LVOT Vmax 0.89 m/sec - LVOT VTI 17.8 cm - LVOT peak gradient 3 mmHg - LVOT mean gradient 2 mmHg - ELMER Vmax 0.96 m/sec - Name Value Normal Range IVC diameter 1.5 cm - Name Value Normal Range PV Vmax 0.73 m/sec - Wallmotion BAS Normal BA Normal BAL Normal ALIA Normal BI Akinetic BIS Normal MAS Normal MA Normal MAL Normal MIL Normal VA Normal MIS Normal Normal AA Normal AL Hypokinetic AI Normal APEX Normal
--- NOTE | 2017-12-29 15:17 | DS ---
CC: Dr. Reardon; Dr. Gimenez * HOSPITAL MEDICINE DISCHARGE SUMMARY: DATE OF ADMISSION: 12/27/17 DATE OF DISCHARGE: 12/28/17 PRIMARY CARE PHYSICIAN: Dr. Reardon PAIN SPECIALIST: Dr. Gimenez. ATTENDING PHYSICIAN: Dr. Ankit Vega * (dictation provided by Samantha Olmedo NP). PRIMARY DIAGNOSIS: Vasovagal syncope. SECONDARY DIAGNOSES: 1. Chronic headache, thought to be secondary to spinal cord stimulator, followed in [place] by Neurosurgery. 2. Chronic back pain. 3. History of low-grade prostate cancer, currently under surveillance. 4. Depression. MEDICATIONS: At time of discharge, no medication change. 1. Omeprazole 20 mg p.o. daily. 2. Lexapro 10 mg p.o. daily. 3. Lactobacillus 1 tab p.o. b.i.d. 4. Morphine 15 mg p.o. q.4 hours p.r.n. pain. HOSPITAL COURSE: Mr. Smyth is a 57-year-old male with a past medical history of chronic back pain with placement of a spinal cord neurostimulator in [place]. He states that since the stimulator was placed that he has had a chronic ongoing headache. He has been admitted to [facility] for this issue immediately prior to this admission, last month from 11/30 to 12/04/17, and no other acute finding to explain his headache was discovered. He did see the neurosurgical PA from [place] and noted that on occasion the spinal cord stimulator can cause a chronic headache. The patient was on dexamethasone, which did resolve his headache, but when the course was completed, his headache returned. The patient states in the setting of these issues, he got up to go to the bathroom in the middle of night, the night before arrival, and had diarrhea. With this, he had perfused sweating and fainted. Mr. Smyth was admitted to the hospital. He had labs, which were unremarkable. He has no leukocytosis, no anemia. His electrolytes are normal. His TSH is normal. He has no evidence of a urinary tract infection. His CT brain is as follows: "No acute intracranial pathology." His chest x-ray is as follows: "No active cardiopulmonary disease." His EKG showed a sinus rhythm with no evidence of ischemia, and question of an old inferior infarct. The patient went on for a transthoracic echocardiogram, which is read as follows: "Mild concentric left ventricular hypertrophy is observed, the estimated ejection fraction is 50% to 55%, mild relative hypokinesis of the [id number] posterior and distal lateral segments and akinesis at the inferior base, which may be a normal variant versus old infarct. Abnormal left ventricular diastolic filling is observed consistent with impaired relaxation. The left atrium is slightly dilated. The right ventricle is mildly dilated. The right ventricular global systolic function is mildly reduced. The aortic valve leaflets are mildly thickened. There is a trace of aortic regurgitation. There is mild mitral regurgitation. There is trace tricuspid regurgitation." He also had a head and neck CTA, which is read as follows: "Minimally atherosclerotic nonstenotic bilateral internal carotid arteries, otherwise normal head CTA and normal neck CTA." Mr. Smyth has remained completely asymptomatic during the hospitalization. He has had no further diarrhea. Based on his symptoms of lightheadedness prior to syncopizing, I suspect that he did have an episode of vasovagal syncope related to diarrhea. He again is asymptomatic. He does have a chronic headache , but is following with his providers at [place] regarding likely removal of the spinal cord stimulator and he plans to call them in the a.m., but he does have an appointment scheduled for early January. He has no change to his headache presentation and no further workup is indicated at this time. Mr. Smyth is medically stable for discharge to home and to be following up with his neurosurgeons in [place] and with his primary care physician, Kailash. DISPOSITION: Home. DIET: Regular. ACTIVITY: As tolerated. FOLLOWUP PLANS: 1. Please follow up with Dr. Linder in the next 1 week. 2. Please follow up with the neurosurgery team in [place] as soon as an appointment can be arranged. TIME SPENT: Approximately 60 minutes were spent on the discharge of this patient, more than half the time spent with the patient at the bedside reviewing the events leading up to this hospitalization, performing the physical examination, and reviewing my plan of care. SAMANTHA OLMEDO NP [id number]/[facility] #: [id number] VIC
== END 2017-12-28 19:01 | disposition home or self-care (01) ==
LOC: ED 15:05 → MED 20:49
PROVIDERS: ADMIT Hospitalist; ATTEND Internal Medicine
DX: R55 Syncope and collapse (principal); R19.7 Diarrhea, unspecified; R51 Headache; M54.9 Dorsalgia, unspecified; G89.29 Other chronic pain; Z85.46 Personal history of malignant neoplasm of prostate; F32.9 Major depressive disorder, single episode, unspecified; Z79.899 Other long term (current) drug therapy; K21.9 Gastro-esophageal reflux disease without esophagitis; R94.31 Abnormal electrocardiogram [ECG] [EKG]; I51.7 Cardiomegaly; Z23 Encounter for immunization
CPT/HCPCS: 36415; 70450; 70496; 70498; 71046; 80053; 81003; 82140; 83605; 83630; 83735; 83880; 84443; 84484; 85025; 85060; 85610; 85730; 87045; 87046; 87077; 87186; 87493; 87899; 90686; 90732; 93005; 93306; 96361; 96365; 96366; 96375; 96376; 99283; A9270-GY; C8929; G0378; J1200; J2765; J3010; Q9967

== ENCOUNTER 2018-06-28 14:21 | Emergency (ER) | payer BC ==
[2018-06-28 14:52] VITALS: BP 115/72
--- NOTE | 2018-06-28 15:15 | ED ---
Abdominal Pain/Male - HPI Summary HPI Summary: 57 yr old male with the complaint of right lower abdominal pain, and groin pain. Onset three days ago, and constant. He is having trouble having a BM. Denies testicular pain. He has a prior hernia repair and is now having pain on same side as hernia repair. Denies NV. Denies abdominal distention. - History of Current Complaint Chief Complaint: UCGeneralIllness Stated Complaint: PERSONAL Time Seen by Provider: 06/28/18 15:07 Pain Intensity: 8 - Allergies/Home Medications Allergies/Adverse Reactions: Allergies Allergy/AdvReac Type Severity Reaction Status Date / Time Adhesive Tape [Paper Tape] Allergy Blisters Verified 06/28/18 14:47 PMH/Surg Hx/FS Hx/Imm Hx Endocrine/Hematology History: Denies: Hx Diabetes, Hx Systemic Lupus Erythematosus, Hx Thyroid Disease, Hx Anemia Cardiovascular History: Denies: Hx Hypertension, Hx Pacemaker/ICD, Other Cardiovascular Problems/ Disorders Respiratory History: Denies: Hx Asthma, Hx Chronic Obstructive Pulmonary Disease (COPD), Other Respiratory Problems/Disorders GI History: Reports: Hx Gastroesophageal Reflux Disease - PRN meds, Hx Irritable Bowel Denies: Hx Jaundice, Hx Ulcer, Other GI Disorders History: Reports: Other Problems/Disorders - elevated PSA and being monitored by Dr. Pereira Denies: Hx Renal Disease Musculoskeletal History: Reports: Hx Back Problems - trina and fusion Denies: Hx Rheumatoid Arthritis Sensory History: Denies: Hx Contacts or Glasses, Hx Deafness, Hx Hearing Aid Opthamlomology History: Denies: Hx Contacts or Glasses Neurological History: Reports: Other Neuro Impairments/Disorders - PAIN CLINIC Psychiatric History: Denies: Hx Panic Disorder - Cancer History Cancer Type, Location and Year: PROSTATE CA Hx Chemotherapy: No Hx Radiation Therapy: No - Surgical History Surgery Procedure, Year, and Place: Back surgery X 4 with fusion/rods, 1999, 2003, 2004, 2009. RIGHT SHOULDER ROTATOR CUFF REPAIR 2013. BELLY BUTTON HERNIA REPAIR 2013. spinal stimulator 2016, [place] [facility] [place] x2 - RECON. OF EAR DRUM - NO IMPLANTS. valarie elbows, 1999. dorsal column stimulator, [facility], Apr 2017 Hx Anesthesia Reactions: No Infectious Disease History: No Infectious Disease History: Denies: Hx Clostridium Difficile, Hx Hepatitis, Hx Human Immunodeficiency Virus (HIV), Hx of Known/Suspected MRSA, Hx Shingles, Hx Tuberculosis, Hx Known/ Suspected VRE, Hx Known/Suspected VRSA, History Other Infectious Disease, Traveled Outside the [place] in Last 30 Days - Family History Known Family History: Positive: Cardiac Disease - father had DE in his 60's, Other - POS: esophageal CA - Social History Alcohol Use: Occasionally Alcohol Amount: 3-4 per week Substance Use Type: Reports: None Smoking Status (MU): Never Smoked Tobacco Have You Smoked in the Last Year: No Review of Systems Constitutional: Negative Positive: Abdominal Pain All Other Systems Reviewed And Are Negative: Yes Physical Exam Triage Information Reviewed: Yes Vital Signs On Initial Exam: Initial Vitals Temp Pulse Resp BP Pulse Ox 98.4 F 72 16 115/72 98 06/28/18 14:48 06/28/18 14:48 06/28/18 14:48 06/28/18 14:48 06/28/18 14:48 Vital Signs Reviewed: Yes Appearance: Positive: Well-Appearing, No Pain Distress Skin: Positive: Warm, Skin Color Reflects Adequate Perfusion Head/Face: Positive: Normal Head/Face Inspection Eyes: Positive: EOMI ENT: Positive: Normal ENT inspection Neck: Positive: Nontender Respiratory/Lung Sounds: Positive: Clear to Auscultation, Breath Sounds Present Cardiovascular: Positive: RRR. Negative: Murmur Abdomen Description: Positive: Other: - mild tender over the Right lower abdomen. No obvious hernia palpated. Negative: Distended Male Genital Exam: Positive: Normal Genitalia. Negative: Hernia Mass, Scrotum Tenderness (R), Scrotum Tenderness (L), Testicular Tenderness (R), Testicular Tenderness (L) Neurological: Positive: Sensory/Motor Intact, Alert, Oriented to Person Place, Time, CN Intact II-III Psychiatric: Positive: Normal Diagnostics - Vital Signs Vital Signs Temp Pulse Resp BP Pulse Ox 06/28/18 14:48 98.4 F 72 16 115/72 98 - Laboratory Lab Statement: Any lab studies that have been ordered have been reviewed, and results considered in the medical decision making process. Abdominal Pain Male Course/Dx - Course Course Of Treatment: 57 yr old male with right lower abdominal and inguinal pain. No obvious hernia and no testicular pain or tenderness. He is going to the ER for further evaluation. - Diagnoses Provider Diagnoses: Deep inguinal pain, right Discharge - Sign-Out/Discharge Documenting (check all that apply): Patient Departure All imaging exams completed and their final reports reviewed: No Studies - Discharge Plan Condition: Good Disposition: HOME-RECOMMEND TO ED Patient Education Materials: Abdominal Pain (ED) Referrals: Zane Johansen MD [Primary Care Provider] - Additional Instructions: You need to go to the ER now for further evaluation after leaving here. - Billing Disposition and Condition Condition: GOOD Disposition: Home-Recommend to ED
== END 2018-06-28 15:19 | disposition home health service (06) ==
LOC: UCCORT 14:21
DX: R10.31 Right lower quadrant pain (principal); Z98.890 Other specified postprocedural states; Z91.09 Other allergy status, other than to drugs and biological substances
CPT/HCPCS: 99212; G0463

== ENCOUNTER 2019-01-19 13:46 | Emergency (ER) | payer BC, OTHER ==
--- OUTSIDE RECORDS SUMMARY | 2019-01-19 14:10 | XMS REPORT | Continuity of Care Document ---
:1960 External Reference #:[id number] Author Name Jacque Gomez MD (transmitted by agent of provider Wayne Denton) Address [address] [place] [address] Care Team Providers Name Role Phone Zane Johansen MD - Family Care Team Information [facility] Problems Active Problems Provider Date Bicipital tenosynovitis Beau Hong M.D. Onset: 07/08/2015 Sprain of shoulder and upper arm Beau Hong M.D. Onset: 07/08/2015 Strain of muscle, fascia and tendon of long Beau Hong M.D. Onset: 09/15 head of biceps, left arm, subsequent encounter Strain of unspecified muscle, fascia and Beau Hong M.D. Onset: 2015 tendon at shoulder and upper arm level, right arm, subsequent encounter Brachial neuritis Beau Hong M.D. Onset: 01/19/2016 Lumbar radiculopathy Siddharth Chavez M.D. Onset: 09/18/2018 Backache Samantha Olmedo N.P. Onset: 12/28/2017 Diarrhea Shira Salguero D.O. Onset: 12/27/2017 Gastroesophageal reflux disease Shira Salguero D.O. Onset: 12/27/2017 Headache Shira Salguero D.O. Onset: 12/27/2017 Syncope and collapse Shira Salguero D.O. Onset: 12/27/2017 Cervical disc disorder Siddharth Chavez M.D. Onset: 03/06/2016 Social History Type Date Description Comments Sex Unknown Tobacco Use Start: Unknown Never Smoked Cigarettes Tobacco Use Start: Unknown Never Smoked Cigars Tobacco Use Start: Unknown Never Smoked A Pipe Smokeless Tobacco Never Used Smokeless Tobacco ETOH Use Occasionally consumes alcohol Tobacco Use Start: Unknown Patient has never smoked Recreational Drug Use Denies Drug Use Smoking Status Reviewed: 12/13/18 Patient has never smoked Exercise Type/Frequency Exercises sporadically Allergies, Adverse Reactions, Alerts Description No Known Drug Allergies Medications Active Medications SIG Qnty Indications Ordering Provider Date Lexapro 1 by mouth every Unknown 10mg Tablets day Protonix 1 by mouth every Unknown 40mg Tablets DR day Medications Administered in Office Medication SIG Qnty Indications Ordering Provider Date Celestone 3 mg and 3mg Mukund Monreal MD 02/18/2018 Injection Depomedrol 40MG MAUREEN Do 12/10/2015 Injection Celestone 3 mg and 3mg Beau Hong M.D. 09/16/2015 Injection Depomedrol 40MG MAUREEN Do 08/13/2015 Injection Celestone 3 mg and 3mg Beau Hong M.D. 07/08/2015 Injection Depomedrol 80MG Delia Duval M.D. 09/04/2014 Injection Immunizations Description No Information Available Vital Signs Date Vital Result Comment 12/13/2018 3:00pm Height 68 inches 5'8" Weight 200.00 lb BP Systolic 118 mmHg BP Diastolic 80 mmHg Pain Level 5 BMI (Body Mass Index) 30.4 kg/m2 09/18/2018 1:15pm Height 68 inches 5'8" Weight 200.00 lb BP Systolic Sitting 150 mmHg BP Diastolic Sitting 80 mmHg Pain Level 0 BMI (Body Mass Index) 30.4 kg/m2 Results Description No Information Available Procedures Description No Information Available Medical Devices Description No Information Available Encounters Type Date Location Provider Dx Diagnosis Office Visit 12/13/2018 [facility] M47.896 Other 3:00p [facility] Jadon Gomez MD spondylosis, lumbar region M51.36 Other intervertebral disc degeneration, lumbar region M47.896 Other spondylosis, lumbar region Office Visit 09/18/2018 [facility] M54.16 Radiculopathy, 1:20p Services Of Jadon Chavez M.D. lumbar region Office Visit 07/10/2018 [facility] AT Darin Mauro, L40.0 Psoriasis vulgaris 2:00p Andres SPENCER D22.5 Melanocytic nevi of trunk B35.4 Tinea corporis L82.1 Other seborrheic keratosis Assessments Date Code Description Provider 12/13/2018 M47.896 Other spondylosis, lumbar region Jacque Gomez MD 12/13/2018 M51.36 Other intervertebral disc degeneration, Jacque Gomez MD lumbar region 12/13/2018 M47.896 Other spondylosis, lumbar region Jacque Gomez MD 09/18/2018 M54.16 Radiculopathy, lumbar region Siddharth Chavez M.D. 07/10/2018 L40.0 Psoriasis vulgaris Darin Mauro MD 07/10/2018 D22.5 Melanocytic nevi of trunk Darin Mauro MD 07/10/2018 B35.4 Tinea corporis Darin Mauro MD 07/10/2018 L82.1 Other seborrheic keratosis Darin Mauro MD Plan of Treatment Future Appointment(s):02/24/2019 2:30 pm - Jacque Gomez MD at [facility]12/13/2018 - Jaqcue Gomez, MDM47.896 Other spondylosis, lumbar regionNew Xrays:SP Lumbar Ap//Lat 2-3 Views, Ordered: Follow up:RV in 2 hiliuhC37.36 Other intervertebral disc degeneration, lumbar region Functional Status Description No Information Available Mental Status Description No Information Available Referrals Description No Information Available
--- NOTE | 2019-01-19 14:18 | UC ---
Skin Complaint HPI - HPI Summary HPI Summary: 58-year-old male who noticed a circular rash to his left upper chest today. 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 He's had no fever or chills and has not noted any ticks on him. - History of Current Complaint Time Seen by Provider: 01/19/19 14:05 Stated Complaint: TICK BITE Hx Obtained From: Patient Onset/Duration: Gradual Onset Skin Exposure Onset/Duration: Minutes Ago - Patient noted the reddened area this morning when he took a shower. Timing: Constant Onset Severity: Mild Current Severity: Mild Location: Other - Left upper chest. Character: Redness Aggravating Factor(s): Nothing Alleviating Factor(s): Nothing Associated Signs & Symptoms: Positive: Negative - Allergy/Home Medications Allergies/Adverse Reactions: Allergies Allergy/AdvReac Type Severity Reaction Status Date / Time Adhesive Tape [Paper Tape] Allergy Blisters Verified 01/19/19 14:19 Home Medications: Home Medications Pantoprazole TAB * [Protonix TAB*] 40 mg PO DAILY 01/19/19 [History Confirmed ] PMH/Surg Hx/FS Hx/Imm Hx Previously Healthy: Yes Cancer History: Prostate Cancer - Surgical History Surgical History: Yes Surgery Procedure, Year, and Place: Back surgery X 4 with fusion/rods, 1999, 2003, 2004, 2009. RIGHT SHOULDER ROTATOR CUFF REPAIR 2013. BELLY BUTTON HERNIA REPAIR 2013. spinal stimulator 2016, then removed two days later ( AT [facility] [place] left ear x2 - RECON. OF EAR DRUM - NO IMPLANTS. valarie elbows, 1999. dorsal column stimulator, [facility], Apr 2017 , REMOVAL MAY 2018 - Family History Known Family History: Positive: Cardiac Disease - father had OR in his 60's, Other - POS: esophageal CA - Social History Alcohol Use: Occasionally Alcohol Amount: 3-4 per week Substance Use Type: None Smoking Status (MU): Never Smoked Tobacco Have You Smoked in the Last Year: No - Immunization History Most Recent Influenza Vaccination: 12/28/17 Most Recent Tetanus Shot: unknown Most Recent Pneumonia Vaccination: 12/28/17 Review of Systems All Other Systems Reviewed And Are Negative: Yes Skin: Positive: Rash, Other - Reddened circular area left upper chest. Is Patient Immunocompromised?: No Physical Exam Triage Information Reviewed: Yes Appearance: Well-Appearing, No Pain Distress, Well-Nourished Vital Signs Reviewed: Yes Skin: Positive: Other - Circular reddened area left upper chest above nipple, one middle area which gives the appearance of a possible insect bite. No other rashes. Course/Dx - Course Course Of Treatment: The patient is comfortable here. Lyme titers were drawn and I am going to start him on doxycycline 100 mg by mouth twice a day 2 weeks and he is to contact his primary care provider before the prescription is finished to see if they want to continue for 1 more week. We will contact him with the Lyme titer results if they come back positive. Patient is agreeable to this plan of action. - Diagnoses Provider Diagnosis: Rash and nonspecific skin eruption Discharge ED - Sign-Out/Discharge Documenting (check all that apply): Patient Departure All imaging exams completed and their final reports reviewed: No Studies - Discharge Plan Condition: Good Disposition: HOME Prescriptions: DOXYcycline CAP(*) [DOXYcycline 100MG CAP(*)] 100 mg PO BID 14 Days #28 cap Patient Education Materials: Tick Bite (ED) Referrals: Zane Johansen MD [Primary Care Provider] - Additional Instructions: No dairy products, antacids or multivitamins 2 hours before you take the doxycycline and 2 hours after you take it however take it with food. Definite follow-up with your primary care provider by phone to see if he would like you to continue the doxycycline 1 more week after you have taken the 2 week course. We will call you if the results of your Lyme titer comes back positive. - Billing Disposition and Condition Condition: GOOD Disposition: Home
[2019-01-19 14:19] VITALS: BP 118/63
== END 2019-01-19 14:29 | disposition home or self-care (01) ==
LOC: UCCORT 13:46
DX: R21 Rash and other nonspecific skin eruption (principal); C61 Malignant neoplasm of prostate
CPT/HCPCS: 36415; 86618; 99212; G0463